=== PATIENT | male | born 1965 | race Caucasian/White ===

== ENCOUNTER 2020-08-25 04:06 | Emergency (ER) | payer OTHER ==
[~2020-08-25] VITALS: Ht 177.8 cm; Wt 109.0 kg
--- NOTE | 2020-08-25 04:25 | PHYS DOC ---
Past History Past Medical History: Angina, CAD, CVA, High Cholesterol, Heart Disease, TIA (LINDY FRANCO MD) Past Surgical History: Angioplasty (LINDY FRANCO MD) General Adult EDM: Chief Complaint: CHEST PAIN HPI: HPI: ".. I ve been having chest pain off and on..or discomfort.. I had two heart attacks last year.. one during the stress test.. and one the next morning.. I ended up with two stents.. and Stroke.. that was in and in [facility].. " " I don't want to be admitted if at all possible.. " It just that this pain woke up up at 0300 am.. and did not go away with 5 nitros..." Patient is a 54 year old male patient from [facility] who presents with periodic chest discomfort. Patient states discomfort tonight has been constant tonight and did not seem to relieve with 3 nitros. Patient states he did take 4 aspirin. Patient has had 2 previous MIs and placement of stents. Did have of CVA in Jun. . Patient has been seen with provider in outpatient clinic here at [facility]. Some recent changes in meds. Patient does not smoke. No recent travel. No specific ill contacts. (LINDY FRANCO MD) Review of Systems: Review of Systems: Constitutional: Denies fever or chills Eyes: Denies change in visual acuity HENT: Denies nasal congestion or sore throat Respiratory: Denies cough or shortness of breath Cardiovascular: Complains of chest pain GI: Denies abdominal pain, nausea, vomiting, bloody stools or diarrhea : Denies dysuria Musculoskeletal: Denies back pain or joint pain Integument: Denies rash Neurologic: Denies headache, focal weakness or sensory changes Endocrine: Denies polyuria or polydipsia Lymphatic: Denies swollen glands Psychiatric: Denies depression or anxiety (LINDY FRANCO MD) Family History: Family History: Father had quadruple bypass age 50, mother had cancer Sister has no health problems (LINDY FRANCO MD) Current Medications: Current Meds: See nursing for home meds (LINDY FRANCO MD) Allergies: Allergies: Allergic to sulfa (LINDY FRANCO MD) Physical Exam: PE: Constitutional: Moderate acute distress, non-toxic appearance. [] HENT: Normocephalic, atraumatic, bilateral external ears normal, oropharynx moist, no oral exudates, nose normal. [] Eyes: PERRLA, EOMI, conjunctiva normal, no discharge. [] Neck: Normal range of motion, no tenderness, supple, no stridor. [] Cardiovascular: Bradycardia heart rate regular rhythm, no murmur [] PMI slightly to the left Lungs & Thorax: Bilateral breath sounds clear to auscultation [] Abdomen: Bowel sounds normal, soft, no tenderness, no masses, no pulsatile masses. Obese Skin: Warm, dry, no erythema, no rash. [] Back: No tenderness, no CVA tenderness. [] Extremities: No tenderness, no cyanosis, no clubbing, ROM intact, trace ankle edema. No cording noted Neurologic: Alert and oriented X 3, normal motor function, normal sensory function, no focal deficits noted. [] Psychologic: Affect anxious, judgement normal, mood normal. [] (LINDY FRANCO MD) Current Patient Data: Labs: Laboratory Tests Test 08/25/20 04:17 08/25/20 07:40 White Blood Count 7.4 x10^3/uL Red Blood Count 4.77 x10^6/uL Hemoglobin 14.4 g/dL Hematocrit 43.7 % Mean Corpuscular Volume 92 fL Mean Corpuscular Hemoglobin 30 pg Mean Corpuscular Hemoglobin Concent 33 g/dL Red Cell Distribution Width 13.5 % Platelet Count 206 x10^3/uL Neutrophils (%) (Auto) 48 % Lymphocytes (%) (Auto) 39 % Monocytes (%) (Auto) 11 % Eosinophils (%) (Auto) 2 % Basophils (%) (Auto) 1 % Neutrophils # (Auto) 3.5 x10^3uL Lymphocytes # (Auto) 2.9 x10^3/uL Monocytes # (Auto) 0.8 x10^3/uL Eosinophils # (Auto) 0.2 x10^3/uL Basophils # (Auto) 0.1 x10^3/uL Prothrombin Time 9.6 SEC Prothromb Time International Ratio 0.9 Activated Partial Thromboplast Time 24 SEC D-Dimer (Elza) 0.32 mg/L Sodium Level 139 mmol/L Potassium Level 4.0 mmol/L Chloride Level 104 mmol/L Carbon Dioxide Level 28 mmol/L Anion Gap 7 Blood Urea Nitrogen 23 mg/dL Creatinine 1.1 mg/dL Estimated GFR (Cockcroft-Gault) 69.5 Glucose Level 104 mg/dL Calcium Level 9.0 mg/dL Magnesium Level 2.0 mg/dL Total Bilirubin 0.4 mg/dL Direct Bilirubin 0.2 mg/dL Aspartate Amino Transf (AST/SGOT) 23 U/L Alanine Aminotransferase (ALT/SGPT) 45 U/L Alkaline Phosphatase 161 U/L Creatine Kinase 75 U/L Troponin I Quantitative < 0.017 ng/mL < 0.017 ng/mL GG-Yev-M-Type Natriuretic Peptide 76 pg/mL Total Protein 6.6 g/dL Albumin 3.9 g/dL Lipase 148 U/L Current Medications Medications (Trade) Dose Ordered Sig/Jenniffer Route PRN Reason Start Time Stop Time Status Last Admin Dose Admin Lactated Ringer's 1,000 ml @ 100 mls/hr Q10H IV 08/25/20 04:30 08/25/20 14:29 08/25/20 04:30 Nitroglycerin (Nitro-Bid Oint) 1 inch 1X ONCE TP 08/25/20 05:30 08/25/20 05:31 DC Enoxaparin Sodium (Lovenox 100mg Syringe) 100 mg 1X ONCE SQ 08/25/20 05:30 08/25/20 05:31 DC 08/25/20 07:00 (CHEIKH TOBIAS DO) EKG: EKG: My interpretation EKG shows a sinus bradycardia 56 bpm. P wave is difficult to identify .[] (LINDY FRANCO MD) Radiology/Procedures: Radiology/Procedures: [][place] [address] IMAGING REPORT Signed PATIENT: LUIS CARLOS ADKINS ACCOUNT: [id number] : 1965 LOCATION: ER AGE: 54 SEX: M EXAM STATUS: PRE ER ORD. PHYSICIAN: LINDY FRANCO MD REASON: Pain- c/p PROCEDURE: PORTABLE CHEST 1V INDICATION: Reason: Pain- c/p / Spl. Instructions: / History: COMPARISON: None. FINDINGS: Single view of chest obtained. Hypertrophic changes at the acromioclavicular joints. Cardiac silhouette is unremarkable. Linear opacity left lung base IMPRESSION: * Linear opacity at the left lung base which could be secondary to atelectasis Electronically signed by: Alan Connell MD (08/25/2020 4:52 AM) DESKTOP- [id number] DICTATED AND SIGNED BY: ALAN CONNELL MD DATE: 08/25/20 045 CC: LINDY FRANCO MD ~MTH0 0 (LINDY FRANCO MD) Heart Score: HEART Score for Chest Pain: HEART Score for Chest Pain Response (Comments) Value History Moderately Suspicious 1 ECG Nonspecific Repolarizatio 1 Age >45 - < 65 1 Risk Factors 1 or 2 Risk Factors 1 Troponin < Normal Limit 0 Total 4 Risk Factors: Risk Factors: DM, Current or recent (<one month) smoker, HTN, HLP, family history of CAD, obesity. Risk Scores: Score 0 - 3: 2.5% MACE over next 6 weeks - Discharge Home Score 4 - 6: 20.3% MACE over next 6 weeks - Admit for Clinical Observation Score 7 - 10: 72.7% MACE over next 6 weeks - Early Invasive Strategies (LINDY FRANCO MD) HEART Score for Chest Pain: HEART Score for Chest Pain Response (Comments) Value History Slighlty/Non-Suspicious 0 ECG Nonspecific Repolarizatio 1 Age >45 - < 65 1 Risk Factors >3 Risk Factors or Hx CAD 2 Troponin < Normal Limit 0 Total 4 Course & Med Decision Making: Course & Med Decision Making Pertinent Labs and Imaging studies reviewed. (See chart for details) Patient endorsed to Dr. Tobias at shift change . He will make disposition. Impression: 1, Chest Pain 2. Hx. CAD- Hx two SC and Two Stents 3. Hx.Elevated Cholesterol 4. Hx. CVA in [] (LINDY FRANCO MD) Course & Med Decision Making I have received signout on the patient's emergency department care from Dr. Herndon. We discussed the history, physical exam findings, completed and pending laboratory results and imaging studies. We have also discussed the current treatment plan and expected clinical course. Please refer to further update notes for additional information regarding the patient's final diagnosis and disposition. In brief patient is a 54-year-old male who presented with a chief complaint of chest pain that is not relieved with home nitroglycerin. He does have a history of coronary artery disease. He has stated multiple times that he does not want to be admitted. Basic labs were obtained and were grossly unremarkable. EKG without acute ischemic changes. D-dimer negative. Given the patient is low risk Wells criteria CT PE study to be deferred. Patient had 2 - troponins. On repeat assessment he remains chest pain-free. His story is not consistent with typical cardiac related angina. I did discuss results of labs and imaging in great detail. Patient is still requesting discharge home. I explained that we cannot fully exclude underlying coronary artery disease or cardiac etiology with laboratory Naus is only. He does express understanding. Utilizing shared decision making patient will be discharged home with close outpatient follow-up. (CHEIKH TOBIAS DO) Dragon Disclaimer: Dragon Disclaimer: This electronic medical record was generated, in whole or in part, using a voice recognition dictation system. (LINDY FRANCO MD) Departure Departure: Impression: Primary Impression: Chest pain of uncertain etiology Disposition: 01 DC HOME SELF CARE/HOMELESS Condition: STABLE Referrals: IZA CALLOWAY MD Patient Instructions: Chest Pain (Nonspecific) Additional Instructions: Please follow-up with your primary care physician in the next 2 to 3 days. LINDY FRANCO MD Aug 25, 2020 04:25 CHEIKH TOBIAS DO Aug 25, 2020 08:31
[2020-08-25] MEDS ORDERED: IV RINGERS SOLUTION,LACTATED 1,000 ML IV SCH (04:30)
[2020-08-25 04:55] LABS: BASO # 0.1 x10^3/uL (0.0-0.2); BASO % 1 % (0-3); EOS # 0.2 x10^3/uL (0.0-0.7); EOS % 2 % (0-3); HEMATOCRIT 43.7 % (39.0-53.0); HEMOGLOBIN 14.4 g/dL (13.0-17.5); LYMPH # 2.9 x10^3/uL (1.0-4.8); LYMPH % 39 % (24-48); MEAN CORPUSCULAR HEMOGLOBIN 30 pg (25-35); MEAN CORPUSCULAR HGB CONC 33 g/dL (31-37); MEAN CORPUSCULAR VOLUME 92 fL (79-100); MONO # 0.8 x10^3/uL (0.0-1.1); MONO % 11 % (0-9); NEUT # 3.5 x10^3uL (1.8-7.7); NEUT % 48 % (31-73); PLATELET COUNT 206 x10^3/uL (140-400); RED BLOOD COUNT 4.77 x10^6/uL (4.30-5.70); RED CELL DISTRIBUTION WIDTH 13.5 % (11.5-14.5); WHITE BLOOD COUNT 7.4 x10^3/uL (4.0-11.0)
--- NOTE | 2020-08-25 04:55 | RAD ---
INDICATION: Reason: Pain- c/p / Spl. Instructions: / History: COMPARISON: None. FINDINGS: Single view of chest obtained. Hypertrophic changes at the acromioclavicular joints. Cardiac silhouette is unremarkable. Linear opacity left lung base IMPRESSION: * Linear opacity at the left lung base which could be secondary to atelectasis Electronically signed by: Hieu Purvis MD (08/25/2020 4:52 AM) DESKTOP-[id number]
[2020-08-25 05:02] LABS: CREATININE 1.1 mg/dL (0.7-1.3); GFR 69.5
[2020-08-25 05:12] LABS: ALBUMIN 3.9 g/dL (3.4-5.0); DIRECT BILIRUBIN 0.2 mg/dL (0.0-0.2); TOTAL BILIRUBIN 0.4 mg/dL (0.2-1.0); TOTAL PROTEIN 6.6 g/dL (6.4-8.2)
[2020-08-25] MEDS ORDERED: NITROGLYCERIN OINT 1 GM PACKET. TP ONE (05:30)
[2020-08-25] MEDS ORDERED: ENOXAPARIN ** NOTE DOSE ** SYRINGE SQ ONE (05:30)
--- NOTE | 2020-08-25 06:18 | EKG ---
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
[2020-08-25 08:42] VITALS: BP 125/64
== END 2020-08-25 08:43 | disposition home or self-care (01) ==
LOC: ER 04:06
DX: R07.89 Other chest pain (principal); I11.9 Hypertensive heart disease without heart failure; E78.00 Pure hypercholesterolemia, unspecified; Z86.73 Personal history of transient ischemic attack (TIA), and cerebral infarction without residual deficits; Z90.89 Acquired absence of other organs; Z88.2 Allergy status to sulfonamides
CPT/HCPCS: 36415; 71045; 80048; 80076; 82550; 83690; 83735; 83880; 84484; 85025; 85379; 85610; 85730; 93005; 96360; 96361; 96372; 99285; J1650; J7120

== ENCOUNTER 2020-09-12 11:57 | Observation (INO) | payer OTHER ==
[~2020-09-12] VITALS: Ht 175.3 cm; Wt 115.4 kg
[2020-09-12] MEDS ORDERED: IV NORMAL SALINE 1,000ML 1,000 ML IV SCH (12:15)
[2020-09-12] MEDS ORDERED: ASPIRIN 325 MG TABLET PO ONE (12:15)
--- NOTE | 2020-09-12 12:31 | EKG ---
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
[2020-09-12 12:36] LABS: BASO # 0.1 x10^3/uL (0.0-0.2); BASO % 1 % (0-3); EOS # 0.2 x10^3/uL (0.0-0.7); EOS % 3 % (0-3); HEMOGLOBIN 14.7 g/dL (13.0-17.5); LYMPH # 2.2 x10^3/uL (1.0-4.8); LYMPH % 31 % (24-48); MEAN CORPUSCULAR HEMOGLOBIN 31 pg (25-35); MEAN CORPUSCULAR HGB CONC 34 g/dL (31-37); MEAN CORPUSCULAR VOLUME 90 fL (79-100); MONO # 0.8 x10^3/uL (0.0-1.1); MONO % 11 % (0-9); NEUT # 3.9 x10^3uL (1.8-7.7); NEUT % 54 % (31-73); PLATELET COUNT 192 x10^3/uL (140-400); RED BLOOD COUNT 4.78 x10^6/uL (4.30-5.70); RED CELL DISTRIBUTION WIDTH 13.8 % (11.5-14.5); WHITE BLOOD COUNT 7.2 x10^3/uL (4.0-11.0)
--- NOTE | 2020-09-12 12:42 | RAD ---
EXAM: Chest, single view. HISTORY: Chest pain. COMPARISON: 08/25/2020 FINDINGS: A frontal view of the chest obtained. There is no infiltrate, pleural effusion or pneumotho rax. There is bilateral infrahilar linear atelectasis. The heart is normal in size. IMPRESSION: Bilateral infrahilar linear atelectasis. Electronically signed by: Liliana Arvizu MD (09/12/2020 12:39 PM) [id number]
--- NOTE | 2020-09-12 12:44 | PHYS DOC ---
Past History Past Medical History: Angina, CAD, CVA, High Cholesterol, Heart Disease, TIA Additional Past Medical Histor: right side weakness, polyps Past Surgical History: Angioplasty Additional Past Surgical Histo: 2 stents, LAMINECTOMY Alcohol Use: None General Adult EDM: Chief Complaint: CHEST PAIN HPI: HPI: Patient is a 54-year-old male who presents with chest pain that started at 430 AM. Patient states that the pain woke him up out of his sleep. Patient reports taking 3 nitros and the pain was resolved. Patient states he went back to sleep and woke back up out of sleep again with chest pain at 9 AM. Pain described as a sharp left-sided chest pain. Patient is rating pain a 4 out of 10. Patient does have a history of a CVA in 2019, stents placed in 2019. Patient is currently taking Plavix.Patient denies nausea, vomiting, shortness of breath or dizziness. Pain does not radiate. Patient reports positive Covid test on July 08 Review of Systems: Review of Systems: Constitutional: Denies fever or chills Eyes: Denies change in visual acuity HENT: Denies nasal congestion or sore throat Respiratory: Denies cough or shortness of breath Cardiovascular: Reports left-sided chest pain, denies edema GI: Denies abdominal pain, nausea, vomiting, bloody stools or diarrhea : Denies dysuria Musculoskeletal: Denies back pain or joint pain Integument: Denies rash Neurologic: Denies headache, focal weakness or sensory changes Endocrine: Denies polyuria or polydipsia Lymphatic: Denies swollen glands Psychiatric: Denies depression or anxiety Current Medications: Current Meds: Current Medications Medications (Trade) Dose Ordered Sig/[facility] Start Time Stop Time Status Last Admin Dose Admin Aspirin (David Aspirin) 325 mg 1X ONCE 09/12/20 12:15 09/12/20 12:16 DC Sodium Chloride 1,000 ml @ 1,000 mls/hr Q1H 09/12/20 12:15 09/12/20 13:14 Allergies: Allergies: Allergies Coded Allergies Type Severity Reaction Last Updated Verified Sulfa (Sulfonamide Antibiotics) Allergy Intermediate 08/25/20 Yes Physical Exam: PE: Constitutional: Well developed, well nourished, no acute distress, non-toxic appearance. [] HENT: Normocephalic, atraumatic, bilateral external ears normal, oropharynx m oist, no oral exudates, nose normal. [] Eyes: PERRLA, EOMI, conjunctiva normal, no discharge. [] Neck: Normal range of motion, no tenderness, supple, no stridor. [] Cardiovascular:Heart rate regular rhythm, no murmur [] Lungs & Thorax: Bilateral breath sounds clear to auscultation [] Abdomen: Bowel sounds normal, soft, no tenderness, no masses, no pulsatile masses. [] Skin: Warm, dry, no erythema, no rash. [] Back: No tenderness, no CVA tenderness. [] Extremities: No tenderness, no cyanosis, no clubbing, ROM intact, no edema. [] Neurologic: Alert and oriented X 3, normal motor function, normal sensory function, no focal deficits noted. [] Psychologic: Affect normal, judgement normal, mood normal. [] Current Patient Data: Vital Signs: Vital Signs Date Time Temp Pulse Resp B/P (MAP) Pulse Ox O2 Delivery O2 Flow Rate FiO2 09/12/20 12:10 97.8 65 20 155/73 (100) 96 Room Air EKG: EKG: [] Radiology/Procedures: Radiology/Procedures: []EXAM: Chest, single view. HISTORY: Chest pain. COMPARISON: 08/25/2020 FINDINGS: A frontal view of the chest obtained. There is no infiltrate, pleural effusion or pneumothorax. There is bilateral infrahilar linear atelectasis. The heart is normal in size. IMPRESSION: Bilateral infrahilar linear atelectasis. Electronically signed by: Liliana Arvizu MD (09/12/2020 12:39 PM) [id number] Heart Score: HEART Score for Chest Pain: HEART Score for Chest Pain Response (Comments) Value History Highly Suspicious 2 ECG Normal 0 Age >45 - < 65 1 Risk Factors >3 Risk Factors or Hx CAD 2 Troponin < Normal Limit 0 Total 5 Risk Factors: Risk Factors: DM, Current or recent (<one month) smoker, HTN, HLP, family history of CAD, obesity. Risk Scores: Score 0 - 3: 2.5% MACE over next 6 weeks - Discharge Home Score 4 - 6: 20.3% MACE over next 6 weeks - Admit for Clinical Observation Score 7 - 10: 72.7% MACE over next 6 weeks - Early Invasive Strategies Course & Med Decision Making: Course & Med Decision Making Pertinent Labs and Imaging studies reviewed. (See chart for details) []Patient is a 54-year-old male who presents with chest pain that started at 430 AM. Patient states that the pain woke him up out of his sleep. Patient reports taking 3 nitros and the pain was resolved. Patient states he went back to sleep and woke back up out of sleep again with chest pain at 9 AM. Pain described as a sharp left-sided chest pain. Patient is rating pain a 4 out of 10. Patient does have a history of a CVA in 2019, stents placed in 2018. Patient is currently taking Plavix.Patient denies nausea, vomiting, shortness of breath or dizziness. Pain does not radiate. Patient reports positive Covid test on July 08 Will order chest x-ray, EKG, labs and troponin. EKG normal sinus rhythm.HR [address] elevation or Depression noted. Chest Xray shows no infiltrates, pleural effusion or pneumothorax. There is bilateral infrahilar linear atelectasis. The heart is normal in size. Trop and DDimer negative. Heart Score [address] Rodriguez, who accepted patient for observation. Will consult cardiology. Patient agrees with this plan. Dragon Disclaimer: Dragon Disclaimer: This electronic medical record was generated, in whole or in part, using a voice recognition dictation system. Departure Departure: Impression: Primary Impression: Chest pain Disposition: ADMITTED INPT THIS HOSP Admitting Physician: Ivet Rodriguez Condition: STABLE Referrals: TONI HANEY (PCP) PETTY WHEELER APRN Sep 12, 2020 12:44
[2020-09-12 12:46] LABS: CALCIUM 8.7 mg/dL (8.5-10.1); CREATININE 0.8 mg/dL (0.7-1.3); GFR 100.4; POTASSIUM 4.5 mmol/L (3.5-5.1)
[2020-09-12 13:03] LABS: ALBUMIN 3.8 g/dL (3.4-5.0); ALBUMIN/GLOBULIN RATIO 1.3 (1.0-1.7); TOTAL BILIRUBIN 0.4 mg/dL (0.2-1.0); TOTAL PROTEIN 6.7 g/dL (6.4-8.2)
[2020-09-12 13:15] LABS: BACTERIA,URINE 0 /HPF (0-FEW); BILIRUBIN,URINE NEG (NEG); CLARITY,URINE CLEAR; COLOR,URINE YELLOW; GLUCOSE,URINE NEG (NEG); NITRITE,URINE NEG (NEG); SQUAMOUS EPITHELIAL CELL,UR FEW /LPF; WBC,URINE OCC /HPF (0-4)
[2020-09-12 13:54] LABS: BARBITURATES NEG (NEG); BENZODIAZEPINES NEG (NEG); CANNABINOIDS NEG (NEG); COCAINE NEG (NEG); METHADONE NEG (NEG); OPIATES NEG (NEG); PHENCYCLIDINE NEG (NEG)
[2020-09-12 13:58] LABS: AMPHETAMINE/METHAMPHETAMINE NEG (NEG)
[2020-09-12 14:57] VITALS: BP 133/80
--- NOTE | 2020-09-12 15:48 | NUR ---
ADMISSION NOTE-PT ARRIVES VIA EMS. HE SCOOTS UNDER HIS WON POWER FROM COT TO BED. VS ASSESSED, ET TELEMETRY INITIATED. PT IS RECENTLY RELEASED FROM [facility] TO THE [facility]. CONTACT MADE WITH [facility] FOR APPROPRIATE [place] PAPERWORK, PHARMACY PREFERENCE, ET MEDICATION LIST.
[2020-09-12] MEDS ORDERED: METOPROLOL (17:07)
[2020-09-12] MEDS ORDERED: ATORVASTATIN CA80 MG PO (17:07)
[2020-09-12] MEDS ORDERED: OXYCARBAZEPINE (17:07)
[2020-09-12] MEDS ORDERED: ASPI-630 PO (17:07)
[2020-09-12] MEDS ORDERED: NITR0.4T22 SL (17:07)
[2020-09-12] MEDS ORDERED: CARV12.547 PO (17:07)
[2020-09-12] MEDS ORDERED: CLOP75TA PO (17:07)
[2020-09-12] MEDS ORDERED: IBUP400T18 PO (17:07)
[2020-09-12] MEDS ORDERED: ISOS120T4 PO (17:07)
[2020-09-12] MEDS ORDERED: LOSA1TAB19 PO (17:07)
--- NOTE | 2020-09-12 19:12 | RAD ---
Exam: US DPLX VENOUS EXTREMITY LOWER RT Indication: Reason: right LE is more swollen than his LLE / Spl. Instructions: / History: Technique: Color-flow and pulsed wave duplex ultrasound with compression of venous structures of th e right lower extremity. Comparison: None Available. Findings: Duplex ultrasound with compression of the deep venous structures of the right lower extremi ty from the common femoral vein through the popliteal vein is negative for DVT. The posterior tibial and peroneal veins are segmentally visualized and patent where seen. Normal venous waveforms and augm entation are noted throughout. Impression: No evidence for DVT in the right lower extremity. Electronically signed by: Cruz Tovar MD (09/12/2020 7:10 PM) GUANACO
--- NOTE | 2020-09-12 19:15 | HP ---
ADMIT DATE: 09/12/2020 HISTORY OF PRESENT ILLNESS: The patient is a 54-year-old male patient, currently at [facility], which is a senior care house, who came to the Emergency Room complaining of chest pain that awakened him from sleep at around 4:30 a.m. He stated he took 3 nitros and the pain has resolved. He denied any nausea or vomiting. He did complain of diaphoresis. He went back to sleep and when he woke up again around 9:00, he had another episode of chest pain. Again, the pain has awakened him up. The pain is described as sharp, left sided, rated the pain as 4/10. He has a history of CVA in 2019 and stent placement in his heart in 2018. He is on Plavix. The pain is mostly left-sided, does not radiate. The patient reported that he tested positive for COVID in 07/08/2020. He was extensively investigated in the Emergency Room, has had an EKG, which showed that he is in normal sinus rhythm according to the ER physician. He has had a chest x-ray, which showed bilateral infrahilar linear atelectasis. His lab work showed that his hemoglobin, hematocrit, white cell count and platelets are normal. His chemistry is unremarkable. His first set of cardiac enzymes showed troponin to be less than 0.017. His D-dimer was 0.21. PT, INR and aPTT are all normal. Urinalysis was unremarkable and toxic screen was negative. The patient was admitted with chest pain that seems to be a decubitus angina as it awakened him from sleep twice and he also complained of some exertional chest pain, although he is mostly wheelchair bound. PAST MEDICAL HISTORY: Significant for hypertension, hyperlipidemia, cerebrovascular accident with right-sided hemiparesis. He said that he gained strength in his right upper extremity to much good extent than his right lower extremity. His symptoms are suggestive of benign prostatic hypertrophy. He is mostly wheelchair bound as apparently he has had laminectomy at L5-S1 and was supposed to have more surgery. PAST SURGICAL HISTORY: Significant for tonsillectomy and PCI with stent deployment x 2. He has also L5-S1 laminectomy. MEDICATIONS: He does not know his medication list. FAMILY HISTORY: He has 1 biological sister older and healthy. His father at the age of 86 due to old age. Mother at age of 83 because of lung cancer. SOCIAL HISTORY: He is , has 2 daughters and 1 son. He never smoked, does not drink alcohol or use recreational drugs. 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 REVIEW OF SYSTEMS: As per history of present illness. PHYSICAL EXAMINATION: GENERAL: On arrival to the Emergency Room, he looked well and was clearly in no apparent respiratory distress. No pallor, jaundice, cyanosis or thyromegaly. No jugular venous distention. No lower limb edema. VITAL SIGNS: His heart rate was 65, blood pressure 155/73, temperature was 97.8, respiratory rate was 20, and oxygen saturation was 96%. HEAD, EYES, EARS, NOSE AND THROAT: Showed normocephalic, atraumatic. NECK: Supple. HEART: Showed normal first and second heart sounds. No gallop, rub or murmur. CHEST: Clear to auscultation. No crepitation or rhonchi. ABDOMEN: Distended, soft, nontender. NEUROLOGIC: He is awake, alert, responding appropriately. All cranial nerves are intact. EXTREMITIES: He moves extremities without difficulty. He actually has weakness more in his right lower extremity than his right upper extremity. He is mostly wheelchair bound. Right lower extremity seems to be a little bit more swollen than his left. LABORATORY DATA: His lab work showed a white cell count 7200, hemoglobin 14.7, hematocrit 43, MCV 90, and platelet count of 192,000 with normal manual differential. His chemistry showed a serum sodium 136, potassium 4.5, chloride 102, bicarbonate 27, anion gap of 7, BUN 21, creatinine 0.8, estimated GFR was 100 mL per minute. His glucose was 96, calcium was 8.7. Total bilirubin, AST, ALT and alkaline phosphatase were normal. His total protein was 6.7, albumin 3.8. His first set of cardiac enzymes showed troponin to be less than 0.017. In summary, this is a 54-year-old male patient with past medical history significant for coronary artery disease, who was brought to the Emergency Room with recurrent episode of chest pain, mostly in the left side that awakened him from sleep twice, rated about 4/10 in severity, associated diaphoresis, but no nausea, vomiting, no radiation. His first set of cardiac enzyme is normal as well as EKG. The patient has a history of myocardial infarction with angioplasty and stent deployment x 2 in 2019. He has also cerebrovascular accident with right-sided hemiparesis affecting his right lower extremity more so than his right upper extremity. He is currently mostly wheelchair bound. Other medical problems include hypertension, hyperlipidemia and questionable benign prostatic hypertrophy. PLAN: Plan is to do 2 more sets of cardiac enzymes, check his fasting lipid profile, consult the Cardiology team and decide the further management accordingly. IZA CALLOWAY MD DR: RACHEL/ratna JOB#: [id number] / [id number]
[2020-09-12 19:53] VITALS: BP 154/96
[2020-09-12] MEDS ORDERED: NITROGLYCERIN SUBLINGUAL 0.4 MG BOTTLE OF 25. SL PRN (21:00)
[2020-09-12] MEDS ORDERED: METOPROLOL TART IMMED RELEASE 25 MG TABLET. PO SCH (21:30)
[2020-09-12 22:52] VITALS: BP 142/76
[2020-09-13 03:06] VITALS: BP 161/87
--- NOTE | 2020-09-13 07:52 | PDOC2 ---
CARDIAC CONSULT DATE OF CONSULT DOS: DATE: 09/13/20 TIME: 07:49 REASON FOR CONSULT Reason for Consult Cheat pain REFERRING PHYSICIAN Referring Physician Dr. Rodriguez SOURCE Source: Chart review, Patient HPI History of Present Illness This is a 54 yo male who presented secondary to chest pain. Patient has a history of CAD s/p PCI/stent placement in August of 2019 in [place]. About 3 months after stent placement, patient began experiencing intermittent chest pain . His interface developer in [place] recommend outpatient stress testing. Unfortunately, prior to ischemic evaluation, patient suffered stroke and then was diagnosed with COVID, which has delayed his ischemic evaluation. Patient was recently discharged from half-way and is now residing at [facility] through December. He will remain in this area for the following 3 years. His primary care has referred him to Dr. Allen for cardiac follow up. Yesterday morning, patient woke up with stabbing pain in his left chest. No associated shortness of breath, diaphoresis, or dizziness. Does report some nausea with one episode of vomiting. Took nitro x3 which resolved pain. Has had no reoccurrence. Has had some nasal congestion recently. Reports pain to be different from what he experienced previously with acute NH. Reports compliance with meds including DAPT with ASA, Plavix. He also reports some pressure in his chest with exertion, which he has been experiencing intermittently since December of last year. PAST MEDICAL HISTORY Cardiovascular: CAD, HTN, hyperipidemia Pulmonary: Other (COVID 06/28) CENTRAL NERVOUS SYSTEM: CVA PAST SURGICAL HISTORY Past Surgical History: Other (PCI/stent ) FAMILY HISTORY Family History: Cancer, Heart Disease, Other (PCI/stent ) SOCIAL HISTORY ALCOHOL: none Drugs: None Lives: with Family CURRENT MEDICATIONS Current Medications Current Medications Aspirin (David Aspirin) 325 mg 1X ONCE PO Last administered on 09/12/20at 12:39; Start 09/12/20 at 12:15; Stop 09/12/20 at 12:16; Status DC Sodium Chloride 1,000 ml @ 1,000 mls/hr Q1H IV Last administered on 09/12/20at 12:41; Start 09/12/20 at 12:15; Stop 09/12/20 at 13:14; Status DC Aspirin (Aspirin Chewable) 81 mg DAILY PO ; Start 09/13/20 at 09:00 Carvedilol (Coreg) 12.5 mg BIDWMEALS PO ; Start 09/13/20 at 08:00 Clopidogrel Bisulfate (Plavix) 75 mg DAILY PO ; Start 09/13/20 at 09:00 Nitroglycerin (Nitrostat) 0.4 mg PRN Q5MIN PRN SL CHEST PAIN; Start 09/12/20 at 21:00 Atorvastatin Calcium (Lipitor) 80 mg DAILY PO ; Start 09/13/20 at 09:00 Isosorbide Mononitrate (Imdur) 240 mg DAILY PO ; Start 09/13/20 at 09:00 Losartan Potassium (Cozaar) 50 mg DAILY PO ; Start 09/13/20 at 09:00 Metoprolol Tartrate (Lopressor) 25 mg BID PO Last administered on 09/12/20at 21:30; Start 09/12/20 at 21:30 Oxcarbazepine (Trileptal) 600 mg BID PO Last administered on 09/12/20at 21:30; Start 09/12/20 at 21:30 Hydrochlorothiazide (Microzide) 12.5 mg DAILY PO ; Start 09/13/20 at 09:00 Active Scripts Active Reported [Metoprolol] 25 25 Mg BID NITROGLYCERIN SubLingual (Nitroglycerin) 0.4 Mg Tab.subl 0.4 Mg SL PRN Q5MIN PRN Aspirin 81 Mg Tab.chew 81 Mg PO DAILY Losartan-Hctz 50-12.5 Mg Tab (Losartan/Hydrochlorothiazide) 1 Each Tablet 1 Tab PO DAILY Isosorbide Mononitrate Er (Isosorbide Mononitrate) 120 Mg Tab.er.24h 240 Mg PO DAILY Atorvastatin Calcium 80 Mg Tablet 1 Tab PO DAILY Clopidogrel (Clopidogrel Bisulfate) 75 Mg Tablet 1 Tab PO DAILY Carvedilol (Carvedilol) 12.5 Mg Tablet 12.5 Mg PO BIDWMEALS [Oxycarbazepine] 600 Mg BID ALLERGIES Allergies: Coded Allergies: Sulfa (Sulfonamide Antibiotics) (Verified Allergy, Intermediate, 08/25/20) ROS Review of Systems 14 point ROS conducted with pertinent positives noted above in HPI PHYSICAL EXAM General: Alert, Oriented X3, Cooperative, No acute distress HEENT: Atraumatic, Mucous membr. moist/pink Lungs: Clear to auscultation Heart: Regular rate Abdomen: Soft, No tenderness Extremities: No edema, Normal pulses Skin: No rashes, No breakdown Neuro: Normal speech, Sensation intact Psych/Mental Status: Mental status NL, Mood NL MUSCULOSKELETAL: Osteoarthritic changes both hands VITALS Vital Signs Vital Signs Date Time Temp Pulse Resp B/P (MAP) Pulse Ox O2 Delivery O2 Flow Rate FiO2 09/13/20 03:06 97.6 63 161/87 (111) 96 Room Air 09/12/20 22:52 20 LABS LABS Laboratory Tests Test 09/12/20 12:18 09/12/20 12:40 09/12/20 18:15 09/12/20 21:48 White Blood Count 7.2 x10^3/uL (4.0-11.0) Red Blood Count 4.78 x10^6/uL (4.30-5.70) Hemoglobin 14.7 g/dL (13.0-17.5) Hematocrit 43.0 % (39.0-53.0) Mean Corpuscular Volume 90 fL (79-100) Mean Corpuscular Hemoglobin 31 pg (25-35) Mean Corpuscular Hemoglobin Concent 34 g/dL (31-37) Red Cell Distribution Width 13.8 % (11.5-14.5) Platelet Count 192 x10^3/uL (140-400) Neutrophils (%) (Auto) 54 % (31-73) Lymphocytes (%) (Auto) 31 % (24-48) Monocytes (%) (Auto) 11 % (0-9) Eosinophils (%) (Auto) 3 % (0-3) Basophils (%) (Auto) 1 % (0-3) Neutrophils # (Auto) 3.9 x10^3uL (1.8-7.7) Lymphocytes # (Auto) 2.2 x10^3/uL (1.0-4.8) Monocytes # (Auto) 0.8 x10^3/uL (0.0-1.1) Eosinophils # (Auto) 0.2 x10^3/uL (0.0-0.7) Basophils # (Auto) 0.1 x10^3/uL (0.0-0.2) Prothrombin Time 10.0 SEC (9.4-11.4) Prothromb Time International Ratio 1.0 (0.9-1.1) Activated Partial Thromboplast Time 24 SEC (23-33) D-Dimer (Elza) 0.21 mg/L (0.00-0.50) Sodium Level 136 mmol/L (136-145) Potassium Level 4.5 mmol/L (3.5-5.1) Chloride Level 102 mmol/L (98-107) Carbon Dioxide Level 27 mmol/L (21-32) Anion Gap 7 (6-14) Blood Urea Nitrogen 21 mg/dL (8-26) Creatinine 0.8 mg/dL (0.7-1.3) Estimated GFR (Cockcroft-Gault) 100.4 BUN/Creatinine Ratio 26 (6-20) Glucose Level 96 mg/dL (70-99) Calcium Level 8.7 mg/dL (8.5-10.1) Total Bilirubin 0.4 mg/dL (0.2-1.0) Aspartate Amino Transf (AST/SGOT) 21 U/L (15-37) Alanine Aminotransferase (ALT/SGPT) 48 U/L (16-63) Alkaline Phosphatase 146 U/L (46-116) Creatine Kinase 117 U/L (39-308) Creatine Kinase MB (Mass) 1.0 ng/mL (0.0-3.6) Creatine Kinase MB Relative Index 0.9 % (0-4) Troponin I Quantitative < 0.017 ng/mL (0-0.055) < 0.017 ng/mL (0-0.055) < 0.017 ng/mL (0-0.055) QZ-Qgb-T-Type Natriuretic Peptide 76 pg/mL (0-124) Total Protein 6.7 g/dL (6.4-8.2) Albumin 3.8 g/dL (3.4-5.0) Albumin/Globulin Ratio 1.3 (1.0-1.7) Urine Collection Type Unknown Urine Color Yellow Urine Clarity Clear Urine pH 6.5 Urine Specific [place] 1.020 Urine Protein Neg (NEG-TRACE) Urine Glucose (UA) Neg mg/dL (NEG) Urine Ketones (Stick) Neg mg/dL (NEG) Urine Blood Trace (NEG) Urine Nitrite Neg (NEG) Urine Bilirubin Neg (NEG) Urine Urobilinogen Dipstick 2.0 mg/dL (0.2 mg/dL) Urine Leukocyte Esterase Neg (NEG) Urine RBC 1-2 /HPF (0-2) Urine WBC Occ /HPF (0-4) Urine Squamous Epithelial Cells Few /LPF Urine Bacteria 0 /HPF (0-FEW) Urine Opiates Screen Neg (NEG) Urine Methadone Screen Neg (NEG) Urine Barbiturates Neg (NEG) Urine Phencyclidine Screen Neg (NEG) Urine Amphetamine/Methamphetamine Neg (NEG) Urine Benzodiazepines Screen Neg (NEG) Urine Cocaine Screen Neg (NEG) Urine Cannabinoids Screen Neg (NEG) Urine Ethyl Alcohol Neg (NEG) ASSESSMENT/PLAN Assessment/Plan 1. Chest pain, mixed features; AMI ruled out. EKG without acute changes 2. CAD s/p PCI/stents 08/27 in [place] 3. Hypertension; mildly elevated 4. Hyperlipidemia; statin 6. CVA with right sided weakness 7. Nausea Recommendations Resume secondary prevention measures including ASA/Plavix, Coreg, statin, and Imdur Discontinue metoprolol as patient is on Coreg Echo to assess LV systolic function Plan for outpatient ischemic evaluation with stress test as arranged Patient has follow up scheduled with Dr. Allen 09/26/19 If echo WNL, may discharge from a CV standpoint. STEFANIE STOLL APRN Sep 13, 2020 07:52
[2020-09-13] MEDS ORDERED: CARVEDILOL 12.5 MG TABLET PO SCH (08:00)
[2020-09-13] MEDS ORDERED: ISOSORBIDE MONONITRATE ER 30 MG TAB.ER.24H PO SCH (09:00)
[2020-09-13] MEDS ORDERED: ONDANSETRON PF 4 MG/2 ML VIAL. IVP ONE (09:00)
[2020-09-13] MEDS: hydroCHLOROthiazide 12.5 MG CAPSULE PO SCH (09:52)
[2020-09-13] MEDS: CLOPIDOGREL BISULFATE 75 MG TABLET PO SCH (09:52)
[2020-09-13] MEDS: ASPIRIN CHEWABLE 81 MG TABLET. PO SCH (09:52)
[2020-09-13] MEDS: LOSARTAN 50 MG TABLET. PO SCH (09:53)
[2020-09-13] MEDS: ATORVASTATIN CALCIUM 20 MG TABLET PO SCH (09:54)
[2020-09-13 10:32] VITALS: BP 169/83
--- NOTE | 2020-09-13 10:56 | NUR ---
MEDICATION NOTE-CALLED DR HANEY'S OFFICE FOR CLARIFICATION ON DOSE OF ISOSORBIDE MN. DOSE IS 30MG ER TABLET DAILY. ALSO, PT TAKES VALSARTAN/HCTZ 320/25MG DAILY AT HOME WELL. IT IS NON-FORMULARY HERE.
[2020-09-13] MEDS ORDERED: ISOS30TA4 PO (10:59)
[2020-09-13] MEDS: ISOSORBIDE MONONITRATE ER 30 MG TAB.ER.24H PO SCH (11:13)
--- NOTE | 2020-09-13 14:00 | EKG ---
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
[2020-09-13 14:41] VITALS: BP 151/70
[2020-09-13] MEDS: CARVEDILOL 12.5 MG TABLET PO SCH (17:00)
--- NOTE | 2020-09-13 17:10 | CARD ---
MR#: [id number] Date of Study: 09/13/2020 Ordering Physician: STEFANIE STOLL, Referring Physician: STEFANIE STOLL, Tech: Daiana Castaneda APPROVED REPORT EXAM: Two-dimensional and M-mode echocardiogram with Doppler and color Doppler. Other Information Quality : AverageHR: 60bpm INDICATION Chest Pain RISK FACTORS Hypertension Hyperlipidemia 2D DIMENSIONS RVDd3.9 (2.9-3.5cm)Left Atrium(2D)4.0 (1.6-4.0cm) IVSd1.1 (0.7-1.1cm)Aortic Root(2D)3.1 (2.0-3.7cm) LVDd5.4 (3.9-5.9cm)LVOT Diameter2.1 (1.8-2.4cm) PWd1.2 (0.7-1.1cm)LVDs2.5 (2.5-4.0cm) FS (%) 54.0 %SV117.3 ml Aortic Valve AoV Peak Paulie.175.7cm/sAoV VTI35.9cm AO Peak GR.12.3mmHgLVOT Peak Paulie.169.1cm/s LVOT VTI 31.63cmAO Mean GR.6mmHg GENO (VMAX)3.76sm0HBP (VTI)3.03cm2 Mitral Valve MV E Fkihxmuh445.3cm/sMV DECEL TFRF332rb MV A Zbqcnmlc92.9cm/sE/A Ratio1.3 Pulmonary Valve PV Peak Jctmqbyf193.9cm/sPV Peak Grad.5mmHg Tricuspid Valve TR P. Eexazgel434cv/sRAP UQDAKEBE8hhJl TR Peak Gr.64bgOjAUJA49hnCz Pulmonary Vein S1 Beygkwqc57.9cm/sD2 Neugzthc89.5cm/s LEFT VENTRICLE The left ventricle is normal size. There is mild concentric left ventricular hypertrophy. The left ve ntricular systolic function is normal and the ejection fraction is within normal range. The Ejection Fraction is 55-60%. There is normal LV segmental wall motion. Transmitral Doppler flow pattern is Gra de II-pseudonormal filling dynamics. RIGHT VENTRICLE The right ventricle is mildly dilated. There is normal right ventricular wall thickness. The right ve ntricular systolic function is normal. ATRIA The left atrium size is normal. The right atrium is borderline dilated. The interatrial septum is int act with no evidence for an atrial septal defect or patent foramen ovale as noted on 2-D or Doppler i maging. AORTIC VALVE The aortic valve is normal in structure and function. Doppler and Color Flow revealed no significant aortic regurgitation. There is no significant aortic valvular stenosis. Calculated aortic valve area is 3.0 cm2 with maximum pressure gradient of 13 mmHg and mean pressure gradient of 6 mmHg. MITRAL VALVE The mitral valve is normal in structure and function. There is no evidence of mitral valve prolapse. There is no mitral valve stenosis. Doppler and Color Flow revealed no mitral valve regurgitation note d. TRICUSPID VALVE The tricuspid valve is normal in structure and function. Doppler and Color Flow revealed trace tricus pid regurgitation with an estimated PAP of 18 mmHg. There is no tricuspid valve stenosis. PULMONIC VALVE The pulmonary valve is normal in structure and function. Doppler and Color Flow revealed trace pulmon ic valvular regurgitation. GREAT VESSELS The aortic root is normal in size. The IVC is normal in size and collapses >50% with inspiration. PERICARDIAL EFFUSION There is no evidence of significant pericardial effusion. Critical Notification Critical Value: No <Conclusion> The left ventricle is normal size. The left ventricular systolic function is normal and the ejection fraction is within normal range. The Ejection Fraction is 55-60%. There is mild concentric left ventricular hypertrophy. There is normal LV segmental wall motion. Doppler and Color Flow revealed no significant aortic regurgitation. There is no significant aortic valvular stenosis. Doppler and Color Flow revealed no mitral valve regurgitation noted. Doppler and Color Flow revealed trace tricuspid regurgitation with an estimated PAP of 18 mmHg. Signed by : Iftikhar Dos Santos MD Electronically Approved : 09/13/2020 17:10:31
--- NOTE | 2020-09-13 19:13 | PN ---
DATE: 09/13/2020 SUBJECTIVE: The patient is resting, slightly propped up in bed, in no apparent distress. He has had no further episodes of chest pain. He did have an episode of nausea this morning. He has had 4 sets of cardiac enzymes, all negative. He was seen managed to get all his medication from his primary and apparently, he has had an echocardiogram that was not been read yet. He was seen by the Cardiology team and the plan was for him to have ischemic workup as an outpatient and to follow with the mix technician on 09/26/2020. PHYSICAL EXAMINATION: GENERAL: When I examined him this afternoon, he looked well and was clearly in no apparent respiratory distress. No pallor, jaundice, cyanosis or thyromegaly. No jugular venous distention. No lower limb edema. VITAL SIGNS: His heart rate was 65, blood pressure was 151/70, temperature was 97.7, respiratory rate was 20, and oxygen saturation was 94%. HEAD, EYES, EARS, NOSE AND THROAT: Showed normocephalic, atraumatic. NECK: Supple. HEART: Showed normal first and second heart sounds. No gallop or murmur. CHEST: Clear to auscultation. No crepitation or rhonchi. ABDOMEN: Distended, soft, nontender. NEUROLOGIC: He is awake, alert, responding appropriately. All cranial nerves intact. He moves his upper extremities better than his lower extremities. He has right-sided hemiparesis. He is mostly wheelchair bound. His intake was 2220, no output was recorded. LABORATORY STUDIES: His lab work showed that he has 3 sets of effort sets of cardiac enzymes that were negative. I did order fasting lipid profile, results of which is still pending. ASSESSMENT AND PLAN: 1. Chest pain, acute myocardial infarction was ruled out. 2. Coronary artery disease, status post percutaneous coronary intervention with stent deployment. 3. Hypertension. 4. Hyperlipidemia. 5. Cerebrovascular accident with right-sided weakness. PLAN: To await further results of the echocardiogram and if it is normal, he will be discharged with an outpatient appointment for ischemic evaluation with stress test. IZA CALLOWAY MD DR: RACHEL/ratna JOB#: [id number] / [id number]
[2020-09-13 19:40] VITALS: BP 118/73
[2020-09-14] MEDS ORDERED: ONDANSETRON PF 4 MG/2 ML VIAL. IVP PRN (00:30)
[2020-09-14 00:44] VITALS: BP 144/79
--- NOTE | 2020-09-14 07:47 | DS ---
DATE OF DISCHARGE: ATTENDING PHYSICIANS: Dr. Rodriguez and Dr. Beavers. FINAL DISCHARGE DIAGNOSES: 1. Atypical chest pain, coronary ischemia ruled out. 2. Known previous stroke with minimal residual deficit. 3. Hyperlipidemia. 4. Coronary artery disease. HISTORY AND PHYSICAL: This 54-year-old gentleman who was recently released from [facility] and is at the [facility], presented with atypical chest pain at rest, awakening him from sleep. Three nitroglycerins were administered. He was admitted for further treatment and evaluation. There is a previous history of angioplasty, stroke, 2 stents and laminectomy. PHYSICAL EXAMINATION: Please see the dictated note. PERTINENT LABORATORY AND X-RAY STUDIES: Four sets of cardiac enzymes were negative for coronary ischemia. His hemoglobin was 14.7 g/dL, white count 7200. Chemistry panel: Sodium was 136 mEq, potassium 4.5 mEq, creatinine was 0.8 mg/dL. Transaminases normal. Alkaline phosphatase of 146. Once again, four sets of enzymes negative for coronary ischemia. An echocardiogram done showed good ejection fraction estimated at 60%. EKG is nondiagnostic. Chest x-ray was clear. COURSE IN THE HOSPITAL: The patient was admitted. Serial enzymes were negative for coronary ischemia. The patient had Cardiology evaluation. Home meds were continued. He is already on Plavix. Arrangements were scheduled for ischemia stress test on 09/26. On the third hospital day, the patient was discharged home with no changes on his meds. He will continue his scheduled Plavix 75 mg p.o. daily, aspirin daily, Lipitor daily, Coreg 12.5 mg b.i.d., Imdur 30 mg daily, losartan/hydrochlorothiazide 50/12.5 one daily, nitroglycerin p.r.n., and oxcarbazepine 600 mg b.i.d. His prognosis is fair. He was discharged then in stable condition with explicit instructions and followup care. Tentative outpatient Cardiology evaluation and stress test 09/26/2020. TOTAL DISCHARGE TIME SPENT: 39 minutes. SUZETTE BEAVERS MD DR: BRANDEE/ratna JOB#: [id number] / [id number]
--- NOTE | 2020-09-14 08:27 | PDOC ---
CARDIO Progress Notes Date & Time Date of Service DATE: 09/14/20 TIME: 08:24 Time of Evaluation 08:24 Subjective Notes no chest pain, palpitations, dizziness, diaphoresis, nausea/vomiting, or SOA Vitals Vitals Vital Signs Date Time Temp Pulse Resp B/P (MAP) Pulse Ox O2 Delivery O2 Flow Rate FiO2 09/14/20 00:44 97.8 59 20 144/79 (100) 94 Room Air Weight Weight [ ] Input and Output I.O. Intake and Output 09/14/20 07:00 Intake Total 1840 ml Balance 1840 ml Intake Oral 1840 ml # Voids 7 # Bowel Movements 1 Laboratory Labs Laboratory Tests Test 09/12/20 12:18 09/12/20 12:40 09/12/20 18:15 09/12/20 21:48 White Blood Count 7.2 x10^3/uL (4.0-11.0) Red Blood Count 4.78 x10^6/uL (4.30-5.70) Hemoglobin 14.7 g/dL (13.0-17.5) Hematocrit 43.0 % (39.0-53.0) Mean Corpuscular Volume 90 fL (79-100) Mean Corpuscular Hemoglobin 31 pg (25-35) Mean Corpuscular Hemoglobin Concent 34 g/dL (31-37) Red Cell Distribution Width 13.8 % (11.5-14.5) Platelet Count 192 x10^3/uL (140-400) Neutrophils (%) (Auto) 54 % (31-73) Lymphocytes (%) (Auto) 31 % (24-48) Monocytes (%) (Auto) 11 % (0-9) Eosinophils (%) (Auto) 3 % (0-3) Basophils (%) (Auto) 1 % (0-3) Neutrophils # (Auto) 3.9 x10^3uL (1.8-7.7) Lymphocytes # (Auto) 2.2 x10^3/uL (1.0-4.8) Monocytes # (Auto) 0.8 x10^3/uL (0.0-1.1) Eosinophils # (Auto) 0.2 x10^3/uL (0.0-0.7) Basophils # (Auto) 0.1 x10^3/uL (0.0-0.2) Prothrombin Time 10.0 SEC (9.4-11.4) Prothromb Time International Ratio 1.0 (0.9-1.1) Activated Partial Thromboplast Time 24 SEC (23-33) D-Dimer (Elza) 0.21 mg/L (0.00-0.50) Sodium Level 136 mmol/L (136-145) Potassium Level 4.5 mmol/L (3.5-5.1) Chloride Level 102 mmol/L (98-107) Carbon Dioxide Level 27 mmol/L (21-32) Anion Gap 7 (6-14) Blood Urea Nitrogen 21 mg/dL (8-26) Creatinine 0.8 mg/dL (0.7-1.3) Estimated GFR (Cockcroft-Gault) 100.4 BUN/Creatinine Ratio 26 (6-20) Glucose Level 96 mg/dL (70-99) Calcium Level 8.7 mg/dL (8.5-10.1) Total Bilirubin 0.4 mg/dL (0.2-1.0) Aspartate Amino Transf (AST/SGOT) 21 U/L (15-37) Alanine Aminotransferase (ALT/SGPT) 48 U/L (16-63) Alkaline Phosphatase 146 U/L (46-116) Creatine Kinase 117 U/L (39-308) Creatine Kinase MB (Mass) 1.0 ng/mL (0.0-3.6) Creatine Kinase MB Relative Index 0.9 % (0-4) Troponin I Quantitative < 0.017 ng/mL (0-0.055) < 0.017 ng/mL (0-0.055) < 0.017 ng/mL (0-0.055) WX-Ryx-E-Type Natriuretic Peptide 76 pg/mL (0-124) Total Protein 6.7 g/dL (6.4-8.2) Albumin 3.8 g/dL (3.4-5.0) Albumin/Globulin Ratio 1.3 (1.0-1.7) Urine Collection Type Unknown Urine Color Yellow Urine Clarity Clear Urine pH 6.5 Urine Specific [place] 1.020 Urine Protein Neg (NEG-TRACE) Urine Glucose (UA) Neg mg/dL (NEG) Urine Ketones (Stick) Neg mg/dL (NEG) Urine Blood Trace (NEG) Urine Nitrite Neg (NEG) Urine Bilirubin Neg (NEG) Urine Urobilinogen Dipstick 2.0 mg/dL (0.2 mg/dL) Urine Leukocyte Esterase Neg (NEG) Urine RBC 1-2 /HPF (0-2) Urine WBC Occ /HPF (0-4) Urine Squamous Epithelial Cells Few /LPF Urine Bacteria 0 /HPF (0-FEW) Urine Opiates Screen Neg (NEG) Urine Methadone Screen Neg (NEG) Urine Barbiturates Neg (NEG) Urine Phencyclidine Screen Neg (NEG) Urine Amphetamine/Methamphetamine Neg (NEG) Urine Benzodiazepines Screen Neg (NEG) Urine Cocaine Screen Neg (NEG) Urine Cannabinoids Screen Neg (NEG) Urine Ethyl Alcohol Neg (NEG) Test 09/13/20 05:53 09/13/20 11:20 Triglycerides Level 117 mg/dL (0-150) Cholesterol Level 143 mg/dL (0-200) LDL Cholesterol, Calculated 74 mg/dL (0-100) VLDL Cholesterol, Calculated 23 mg/dL (0-40) Non-HDL Cholesterol Calculated 97 mg/dL (0-129) HDL Cholesterol 46 mg/dL (40-60) Cholesterol/HDL Ratio 3.0 Troponin I Quantitative < 0.017 ng/mL (0-0.055) Physical Exams HEENT: Neck Supple W Full Motion Chest: Symmetric Lungs: Clear to Auscultation Heart: RRR Abdomen: Soft N/T Extremities: No Edema Neurology: alert, oriented, follow commands Assessment Assessment 1. Chest pain, mixed features; AMI ruled out. EKG without acute changes. Echo with preserved LV systolic function. No WMA 2. CAD s/p PCI/stents 08/27 in [place] 3. Hypertension; improved 4. Hyperlipidemia; statin 6. CVA with right sided weakness 7. Nausea; resolved Recommendations Continue secondary prevention measures including ASA/Plavix, Coreg, statin, and Imdur Outpatient ischemic evaluation with stress test as arranged Patient has follow up scheduled with Dr. Allen 09/26/19 at 1:15pm Okay to discharge from a CV standpoint. STEFANIE STOLL APRN Sep 14, 2020 08:27
[2020-09-14] MEDS ORDERED: CARV12.547 PO (08:29)
[2020-09-14] MEDS: CARVEDILOL 12.5 MG TABLET PO SCH (09:13)
[2020-09-14] MEDS: ATORVASTATIN CALCIUM 20 MG TABLET PO SCH (09:13)
[2020-09-14] MEDS: ISOSORBIDE MONONITRATE ER 30 MG TAB.ER.24H PO SCH (09:13)
[2020-09-14] MEDS: CLOPIDOGREL BISULFATE 75 MG TABLET PO SCH (09:13)
[2020-09-14 09:14] VITALS: BP 144/79
[2020-09-14] MEDS: hydroCHLOROthiazide 12.5 MG CAPSULE PO SCH (09:14)
[2020-09-14] MEDS: ASPIRIN CHEWABLE 81 MG TABLET. PO SCH (09:14)
[2020-09-14] MEDS: LOSARTAN 50 MG TABLET. PO SCH (09:14)
--- NOTE | 2020-09-14 11:23 | NUR ---
NSG NOTE; DISCHARGE WRITTEN AND VERBAL DISCHARGE INSTRUCTIONS GIVEN TO PT WITH VERBAL UNDERSTANDING WRITTEN RX X1 GIVEN TO PT DISCHARGED FOR RETURN TO [facility] AT 1120 VIA W/C ACCOMP BY TRANSPORT PERSONNEL WHO PICKED HIM UP
== END 2020-09-14 11:20 | disposition home or self-care (01) ==
LOC: ER 11:57 → 1 SOUTH 13:30 → ER 13:40
PROVIDERS: ADMIT Internal Medicine; ATTEND Internal Medicine
DX: I25.10 Atherosclerotic heart disease of native coronary artery without angina pectoris (principal); I10 Essential (primary) hypertension; I25.119 Atherosclerotic heart disease of native coronary artery with unspecified angina pectoris; I63.9 Cerebral infarction, unspecified; I69.351 Hemiplegia and hemiparesis following cerebral infarction affecting right dominant side; E78.5 Hyperlipidemia, unspecified; E78.00 Pure hypercholesterolemia, unspecified; M79.89 Other specified soft tissue disorders; R29.700 NIHSS score 0; Z79.899 Other long term (current) drug therapy; Z98.890 Other specified postprocedural states; Z95.1 Presence of aortocoronary bypass graft; Z79.82 Long term (current) use of aspirin; Z79.02 Long term (current) use of antithrombotics/antiplatelets; Z95.5 Presence of coronary angioplasty implant and graft
CPT/HCPCS: 36415; 71045; 80053; 80061; 80307; 81001; 82553; 83880; 84484; 85025; 85379; 85610; 85730; 93005; 93306; 93971; 96374; 96376; 99285; G0378; J2405; J7030; G0379

== ENCOUNTER 2020-10-07 21:51 | Emergency (ER) | payer OTHER ==
[~2020-10-07] VITALS: Ht 180.3 cm; Wt 115.0 kg
[~2020-10-07 21:51] MED LIST: ASPI-630 PO; ATORVASTATIN CA80 MG PO; CARV12.547 PO; CLOP75TA PO; IBUP400T18 PO; ISOS120T4 PO; ISOS30TA68 PO; LOSA1TAB19 PO; METOPROLOL; NITR0.4T22 SL; OXYCARBAZEPINE
[2020-10-07] MEDS ORDERED: RINGERS LACTATED IV ONE (22:00)
--- NOTE | 2020-10-07 22:51 | RAD ---
CT Head W/O Contrast: History: Reason: syncope / Spl. Instructions: / History: Comparison: none Axial images were obtained without contrast. The caldwell and white matter appears normal and symmetrical for the patients age. There is no mass effe ct, extraaxial fluid collections or hydrocephalus. There is no gross bleed. There is no focal loss of caldwell-white matter distinction to suggest acute ischemia, i.e. stroke. Impression: No acute findings. RS Compliance Statement: One or more of the following individualized dose reduction techniques were utilized for this examinat ion: 1. Automated exposure control 2. Adjustment of the mA and/or kV according to patient size 3. Use of iterative reconstruction technique Electronically signed by: Santo Lind III, MD (10/07/2020 10:48 PM) [facility]
[2020-10-07 23:07] LABS: BASO # 0.1 x10^3/uL (0.0-0.2); BASO % 1 % (0-3); EOS # 0.1 x10^3/uL (0.0-0.7); EOS % 2 % (0-3); HEMATOCRIT 46.4 % (39.0-53.0); HEMOGLOBIN 15.3 g/dL (13.0-17.5); LYMPH # 2.4 x10^3/uL (1.0-4.8); LYMPH % 29 % (24-48); MEAN CORPUSCULAR HEMOGLOBIN 31 pg (25-35); MEAN CORPUSCULAR HGB CONC 33 g/dL (31-37); MEAN CORPUSCULAR VOLUME 93 fL (79-100); MONO # 1.2 x10^3/uL (0.0-1.1); MONO % 14 % (0-9); NEUT # 4.5 x10^3uL (1.8-7.7); NEUT % 54 % (31-73); PLATELET COUNT 265 x10^3/uL (140-400); RED BLOOD COUNT 5.01 x10^6/uL (4.30-5.70); RED CELL DISTRIBUTION WIDTH 13.8 % (11.5-14.5); WHITE BLOOD COUNT 8.3 x10^3/uL (4.0-11.0)
[2020-10-07 23:14] LABS: CALCIUM 8.6 mg/dL (8.5-10.1); CREATININE 1.2 mg/dL (0.7-1.3); GFR 62.9; POTASSIUM 4.2 mmol/L (3.5-5.1)
[2020-10-07 23:19] LABS: ALBUMIN 3.7 g/dL (3.4-5.0); ALBUMIN/GLOBULIN RATIO 1.1 (1.0-1.7); TOTAL BILIRUBIN 0.4 mg/dL (0.2-1.0); TOTAL PROTEIN 7.1 g/dL (6.4-8.2)
[2020-10-07 23:32] LABS: % BANDS 1 % (0-9); % EOS 3 % (0-5); % LYMPHS 31 % (24-48); % MONOS 10 % (0-10); % SEGS 55 % (35-66); PLT ESTIMATE ADEQUATE (ADEQUATE)
--- NOTE | 2020-10-07 23:44 | RAD ---
Chest AP portable at 2223: Reason for examination: Cardiac workup. Syncope. Comparison is made to previous study dated 09/22/2020. The heart size is normal. Mediastinum is unremarkable. Lung dennis are clear. No acute bony abnormali ties are seen. Impression: No acute cardiopulmonary disease. Electronically signed by: Priyanka Tirado MD (10/07/2020 11:42 PM) [place]
[2020-10-08] MEDS ORDERED: ACETAMINOPHEN 500 MG TABLET PO ONE
[2020-10-08] MEDS ORDERED: MORPHINE SULFATE 4 MG/ML DISP.SYRIN. IV ONE
[2020-10-08 02:00] VITALS: BP 150/72
--- NOTE | 2020-10-08 02:13 | PHYS DOC ---
Past History Past Medical History: High Cholesterol, Hypertension, Other Additional Past Medical Histor: SEASONAL ALLERGIES Past Surgical History: Angioplasty Additional Past Surgical Histo: 2 stents, LAMINECTOMY Alcohol Use: None Adult General Chief Complaint Chief Complaint: SYNCOPE HPI HPI Patient is a 54-year-old male with a past medical history significant for cardiovascular disease and stenting, status post heart catheterization today, distant history of seizures on seizure medication who presents with a chief complaint of presyncope/syncope. Patient states that he had a scheduled heart catheterization for today at [facility]. States he was n.p.o. since last night, came into the hospital this morning and had the heart catheterization. States he did not receive any stents or had balloon cindi oplasty. States he got home at about 6 PM and was feeling well. States he was sitting in his room talking with some people just after eating got lightheaded and passed out while sitting in the chair. According to the people at the nursing/rehab facility he passed out for approximately a minute and was still breathing and had a pulse with no change in color. States when he woke up he remembers still sitting in his chair and talking to the worker and asked what happened. States he has had seizures in the distant past, is on medication but has not had one in years. States this felt nothing like that and when he woke up he had an idea of what was happening and was not confused. States when he woke up he had a mild whole head headache, dull and achy in nature, 6 out of 10. Denies any changes in vision, neck pain, trouble swallowing, chest pain, shortness of breath, abdominal pain, nausea, vomiting, diarrhea, dysuria, hematuria or blood in the stool. Patient states other than the mild headache he feels well and wondered even if he should have came to the emergency department. Review of Systems Review of Systems Review of systems otherwise unremarkable except noted in HPI. Current Medications Current Medications Current Medications Medications (Trade) Dose Ordered Sig/Jenniffer Start Time Stop Time Status Last Admin Dose Admin Acetaminophen (Tylenol) 1,000 mg 1X ONCE 10/08/20 00:00 10/08/20 00:01 DC 10/07/20 23:52 1,000 MG Lactated Ringer's 250 ml @ 250 mls/hr 1X ONCE 10/07/20 22:00 10/07/20 22:59 DC 10/07/20 22:00 250 MLS/HR Morphine Sulfate (Morphine 4mg Syringe) 4 mg 1X ONCE 10/08/20 00:00 10/08/20 00:01 DC 10/07/20 23:53 4 MG Allergies Allergies Allergies Coded Allergies Type Severity Reaction Last Updated Verified Sulfa (Sulfonamide Antibiotics) Allergy Intermediate 10/07/20 Yes Physical Exam Physical Exam Constitutional: Well developed, well nourished, no acute distress, non-toxic appearance. [] HENT: Normocephalic, atraumatic, oropharynx moist, no oral exudates, nose normal. [] Eyes: PERRLA, EOMI, conjunctiva normal, no discharge. [] Neck: Normal range of motion, no tenderness, Cardiovascular: Tachycardia, systolic murmur. Lungs & Thorax: Bilateral breath sounds clear to auscultation [] Abdomen: soft, no tenderness, no masses, no pulsatile masses. [] Skin: Warm, dry, no erythema, no rash. [] Back: No tenderness, no CVA tenderness. [] Extremities: No tenderness, no cyanosis, no clubbing, ROM intact, no edema. [] Neurologic: Alert and oriented X 3, normal motor function, normal sensory function, no focal deficits noted. [] Psychologic: Affect normal, judgement normal, mood normal. [] Current Patient Data Vital Signs Vital Signs Date Time Temp Pulse Resp B/P (MAP) Pulse Ox O2 Delivery O2 Flow Rate FiO2 10/08/20 00:45 158/78 (104) 10/08/20 00:13 76 20 95 10/07/20 23:53 Room Air 10/07/20 22:53 97.6 Lab Results Laboratory Tests Test 10/07/20 22:46 10/08/20 00:45 White Blood Count 8.3 x10^3/uL (4.0-11.0) Red Blood Count 5.01 x10^6/uL (4.30-5.70) Hemoglobin 15.3 g/dL (13.0-17.5) Hematocrit 46.4 % (39.0-53.0) Mean Corpuscular Volume 93 fL (79-100) Mean Corpuscular Hemoglobin 31 pg (25-35) Mean Corpuscular Hemoglobin Concent 33 g/dL (31-37) Red Cell Distribution Width 13.8 % (11.5-14.5) Platelet Count 265 x10^3/uL (140-400) Neutrophils (%) (Auto) 54 % (31-73) Lymphocytes (%) (Auto) 29 % (24-48) Monocytes (%) (Auto) 14 % (0-9) H Eosinophils (%) (Auto) 2 % (0-3) Basophils (%) (Auto) 1 % (0-3) Neutrophils # (Auto) 4.5 x10^3uL (1.8-7.7) Lymphocytes # (Auto) 2.4 x10^3/uL (1.0-4.8) Monocytes # (Auto) 1.2 x10^3/uL (0.0-1.1) H Eosinophils # (Auto) 0.1 x10^3/uL (0.0-0.7) Basophils # (Auto) 0.1 x10^3/uL (0.0-0.2) Segmented Neutrophils % 55 % (35-66) Band Neutrophils % 1 % (0-9) Lymphocytes % 31 % (24-48) Monocytes % 10 % (0-10) Eosinophils % 3 % (0-5) Platelet Estimate Adequate (ADEQUATE) Sodium Level 138 mmol/L (136-145) Potassium Level 4.2 mmol/L (3.5-5.1) Chloride Level 103 mmol/L (98-107) Carbon Dioxide Level 28 mmol/L (21-32) Anion Gap 7 (6-14) Blood Urea Nitrogen 17 mg/dL (8-26) Creatinine 1.2 mg/dL (0.7-1.3) Estimated GFR (Cockcroft-Gault) 62.9 BUN/Creatinine Ratio 14 (6-20) Glucose Level 105 mg/dL (70-99) H Calcium Level 8.6 mg/dL (8.5-10.1) Magnesium Level 2.1 mg/dL (1.8-2.4) Total Bilirubin 0.4 mg/dL (0.2-1.0) Aspartate Amino Transferase (AST) 21 U/L (15-37) Alanine Aminotransferase (ALT) 49 U/L (16-63) Alkaline Phosphatase 160 U/L (46-116) H Troponin I Quantitative < 0.017 ng/mL (0-0.055) < 0.017 ng/mL (0-0.055) Total Protein 7.1 g/dL (6.4-8.2) Albumin 3.7 g/dL (3.4-5.0) Albumin/Globulin Ratio 1.1 (1.0-1.7) EKG EKG Tachycardia, normal QRS, normal QTC, no STEMI [] Radiology/Procedures Radiology/Procedures []Comparison: none Axial images were obtained without contrast. The caldwell and white matter appears normal and symmetrical for the patients age. There is no mass effect, extraaxial fluid collections or hydrocephalus. There is no gross bleed. There is no focal loss of caldwell-white matter distinction to suggest acute ischemia, i.e. stroke. Impression: No acute findings. PQRS Compliance Statement: One or more of the following individualized dose reduction techniques were utilized for this examination: Chest AP portable at 2223: Reason for examination: Cardiac workup. Syncope. Comparison is made to previous study dated 09/22/2020. The heart size is normal. Mediastinum is unremarkable. Lung dennis are clear. No acute bony abnormalities are seen. Impression: No acute cardiopulmonary disease. Electronically signed by: Priyanka Tirado MD (10/07/2020 11:42 PM) [facility] Heart Score Risk Factors: Risk Factors: DM, Current or recent (<one month) smoker, HTN, HLP, family history of CAD, obesity. Risk Scores: Risk Factors: DM, Current or recent (<one month) smoker, HTN, HLP, family history of CAD, obesity. Course & Med Decision Making Course & Med Decision Making Patient is a 54-year-old male who presents to the emergency department with a chief complaint of syncope Vital signs notable for tachycardia, which resolved in the ED. Physical exam noted above. EKG not concerning. Troponin x2 not concerning. Catheter site soft nontender with only mild bruising. Chest x-ray not concerning. Head CT not concerning. Basic laboratory analysis not concerning. TSH pending. While in the ED patient took p.o. without issue. Given pain medication for headache. Patient able to sleep without issue. On reassessment discussed all findings with patient and offered admission for observation and repeat EKGs and troponins. Patient stated he was feeling much better, his headache was gone and did not feel that he needed to stay in the hospital or go back over to [place]. Discussed with patient the risks given his cardiovascular history and recent catheterization including but not limited to infection, syncope and fall, ca rdiac damage, significant morbidity and even mortality. Patient states that he thinks it was just because he had had much to eat, and had anesthesia. Stated he felt back to baseline and was ready to go back home. Advised patient to call his galley hand first thing Saturday morning to update on ED visit. Advised to come back to the emergency department immediately with any new or concerning symptoms. Patient grateful, verbalized understanding and agreed with plan of discharge. [] Dragon Disclaimer Dragon Disclaimer This electronic medical record was generated, in whole or in part, using a voice recognition dictation system. Departure Departure: Impression: Primary Impression: Syncope Disposition: 01 DC HOME SELF CARE/HOMELESS Condition: GOOD Referrals: TONI HANEY (PCP) Patient Instructions: Syncope Additional Instructions: Please read all the attached information. Please make sure to stay hydrated and eat appropriately. Please take all your medications as prescribed. As discussed please call your galley hand first thing Saturday to discuss ED visit and set up follow-up visit. As discussed, have a low threshold to return to the ED and come back immediately if you have any new or concerning symptoms as discussed. MAYELIN PARISI MD Oct 08, 2020 02:13
--- NOTE | 2020-10-08 07:34 | EKG ---
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
== END 2020-10-08 02:20 | disposition home or self-care (01) ==
LOC: ER 21:51
DX: R55 Syncope and collapse (principal); R42 Dizziness and giddiness; R51.9 Headache, unspecified; I25.10 Atherosclerotic heart disease of native coronary artery without angina pectoris; E78.00 Pure hypercholesterolemia, unspecified; I10 Essential (primary) hypertension; Z98.61 Coronary angioplasty status; Z88.2 Allergy status to sulfonamides
CPT/HCPCS: 36415; 70450; 71045; 80053; 83735; 84443; 84484; 85007; 85025; 93005; 96361; 96374; 99285; J2270; J7120

== ENCOUNTER 2020-10-25 18:52 | Emergency (ER) | payer OTHER ==
[~2020-10-25] VITALS: Ht 177.8 cm; Wt 109.1 kg
--- NOTE | 2020-10-25 19:46 | RAD ---
EXAM: XR CHEST 1V 10/25/2020 7:31 PM CLINICAL INDICATION: Shortness of breath COMPARISON: Chest radiograph 10/07/2020 TECHNIQUE: AP upright view of the chest FINDINGS: The heart and mediastinum are normal. Lungs are well-expanded. There is minimal linear at electasis in the left lung base. No consolidation, pleural effusion, or pneumothorax. Pulmonary vas cularity is normal. The thoracic skeleton is intact. IMPRESSION: No acute cardiopulmonary abnormality. Electronically signed by: Jessica Keenan MD (10/25/2020 7:44 PM) [id number]
--- NOTE | 2020-10-25 19:48 | PHYS DOC ---
Past History Past Medical History: High Cholesterol, Hypertension, Other Additional Past Medical Histor: SEASONAL ALLERGIES Past Surgical History: Angioplasty Additional Past Surgical Histo: 2 stents, LAMINECTOMY Alcohol Use: None Adult General Chief Complaint Chief Complaint: CHEST PAIN HPI HPI Patient is a 55-year-old male with a past medical history significant for CAD, status post stent placement on aspirin and Plavix, hypertension and hyperlipidemia as well as CVA who presents with a chief complaint of shortness of breath. Patient states he has been doing well up until about an hour or 2 ago when he was taking a nap and woke up secondary to shortness of breath. States that he worked earlier in the day and had no issues with shortness of breath, chest pain, headache, abdominal pain, nausea, vomiting, dysuria, hematuria or blood in the stool. States he has been otherwise eating and drinking normally for him. States he is making urine and stool normally for him with no blood in either. Endorses dyspnea on exertion for the last 2 hours but no orthopnea or PND. Does endorse bilateral lower extremity swelling. Denies any recent travel, illnesses, fevers, Covid/flu symptoms. Review of Systems Review of Systems Review of systems otherwise unremarkable except noted in HPI Allergies Allergies Allergies Coded Allergies Type Severity Reaction Last Updated Verified Sulfa (Sulfonamide Antibiotics) Allergy Intermediate 10/07/20 Yes Physical Exam Physical Exam Constitutional: Well developed, well nourished, no acute distress, non-toxic appearance. [] HENT: Normocephalic, atraumatic, oropharynx moist, no oral exudates, Eyes: , conjunctiva normal, no discharge. [] Neck: Normal range of motion, no tenderness, supple, no stridor. [] Cardiovascular:Heart rate regular rhythm, no murmur [] Lungs & Thorax: Bilateral breath sounds clear to auscultation [] Abdomen: soft, no tenderness, no masses, no pulsatile masses. [] Skin: Warm, dry, no erythema, no rash. [] Back: No tenderness, Extremities: No tenderness, no cyanosis, no clubbing, ROM intact, mild nonpitting edema] Neurologic: Alert and oriented X 3, normal motor function, normal sensory function, no focal deficits noted. [] Psychologic: Affect normal, judgement normal, mood normal. [] EKG EKG EKG with a rate of 78, QRS of 88, QTc of 425, no STEMI [] Repeat EKG with a rate of 59, QRS of 90, QTc of 414, no STEMI Radiology/Procedures Radiology/Procedures []TECHNIQUE: AP upright view of the chest FINDINGS: The heart and mediastinum are normal. Lungs are well-expanded. There is minimal linear atelectasis in the left lung base. No consolidation, pleural effusion, or pneumothorax. Pulmonary vascularity is normal. The thoracic skeleton is intact. IMPRESSION: No acute cardiopulmonary abnormality. Electronically signed by: Jessica Keenan MD (10/25/2020 7:44 PM) [id number] Heart Score HEART Score for Chest Pain: HEART Score for Chest Pain Response (Comments) Value History Moderately Suspicious 1 ECG Normal 0 Age >45 - < 65 1 Risk Factors >3 Risk Factors or Hx CAD 2 Troponin < Normal Limit 0 Total 4 Risk Factors: Risk Factors: DM, Current or recent (<one month) smoker, HTN, HLP, family history of CAD, obesity. Risk Scores: Risk Factors: DM, Current or recent (<one month) smoker, HTN, HLP, family history of CAD, obesity. Course & Med Decision Making Course & Med Decision Making Patient is a 55-year-old male who presents with a chief complaint of acute onset shortness of breath and dyspnea on exertion Vital signs notable for tachypnea. Physical exam noted above. Patient placed on the monitor with IV access established. EKG noted above and not concerning for STEMI. Initial troponin normal. Repeat EKG noted above and not concerning for STEMI. Repeat troponin normal. D-dimer normal. Chest x-ray normal. On reassessment patient was asymptomatic with normal vital signs. Discussed options of staying the night for observation and serial EKGs and troponins versus going home and following up with primary care physician. Patient stated he was feeling well and felt he could be discharged home and would follow-up with his primary care physician. Advised to follow-up first thing tomorrow with his primary care physician. Gave strict return precautions to the ED. Patient grateful, verbalized understanding and agreed with plan of discharge. [] Dragon Disclaimer Dragon Disclaimer This electronic medical record was generated, in whole or in part, using a voice recognition dictation system. Departure Departure: Impression: Primary Impression: SOB (shortness of breath) on exertion Disposition: 01 DC HOME SELF CARE/HOMELESS Condition: GOOD Referrals: TONI HANEY (PCP) Patient Instructions: Shortness of Breath, [id number] Additional Instructions: Please read all the attached information. Please continue to take all your medications as prescribed. You are given your nighttime dose of losartan. Please continue all of your meds as scheduled. Please call your primary care physician first thing in the morning to discuss ED visit and set up a post ER follow-up visit as soon as you can. Please come back to the ED with new or concerning symptoms. MAYELIN PARISI MD Oct 25, 2020 19:48
[2020-10-25 19:52] LABS: CALCIUM 9.4 mg/dL (8.5-10.1); CREATININE 1.1 mg/dL (0.7-1.3); GFR 69.2; POTASSIUM 4.5 mmol/L (3.5-5.1)
[2020-10-25 19:54] LABS: BASO # 0.1 x10^3/uL (0.0-0.2); BASO % 1 % (0-3); EOS # 0.2 x10^3/uL (0.0-0.7); EOS % 2 % (0-3); HEMATOCRIT 43.2 % (39.0-53.0); HEMOGLOBIN 14.4 g/dL (13.0-17.5); LYMPH # 2.2 x10^3/uL (1.0-4.8); LYMPH % 24 % (24-48); MEAN CORPUSCULAR HEMOGLOBIN 31 pg (25-35); MEAN CORPUSCULAR HGB CONC 33 g/dL (31-37); MEAN CORPUSCULAR VOLUME 92 fL (79-100); MONO # 1.1 x10^3/uL (0.0-1.1); MONO % 13 % (0-9); NEUT # 5.4 x10^3uL (1.8-7.7); NEUT % 60 % (31-73); PLATELET COUNT 224 x10^3/uL (140-400); RED BLOOD COUNT 4.69 x10^6/uL (4.30-5.70)
[2020-10-25 20:05] LABS: ALBUMIN 3.6 g/dL (3.4-5.0); ALBUMIN/GLOBULIN RATIO 1.2 (1.0-1.7); TOTAL BILIRUBIN 0.3 mg/dL (0.2-1.0); TOTAL PROTEIN 6.6 g/dL (6.4-8.2)
--- NOTE | 2020-10-25 22:35 | EKG ---
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
--- NOTE | 2020-10-25 22:36 | EKG ---
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
[2020-10-25] MEDS ORDERED: LOSARTAN 50 MG TABLET. PO SCH (23:00)
[2020-10-25 23:16] VITALS: BP 165/60
== END 2020-10-25 23:20 | disposition home or self-care (01) ==
LOC: ER 18:52
DX: R06.02 Shortness of breath (principal); R06.09 Other forms of dyspnea; R60.1 Generalized edema; E78.00 Pure hypercholesterolemia, unspecified; I10 Essential (primary) hypertension; Z88.2 Allergy status to sulfonamides
CPT/HCPCS: 36415; 71045; 80053; 83735; 83880; 84484; 85025; 85379; 93005; 99285

== ENCOUNTER 2021-04-19 19:02 | Emergency (ER) | payer SELFPAY ==
[~2021-04-19] VITALS: Ht 177.8 cm; Wt 109.1 kg
--- NOTE | 2021-04-19 19:32 | PHYS DOC ---
Past History Past Medical History: CVA, High Cholesterol, Hypertension, [place], Other Additional Past Medical Histor: SEASONAL ALLERGIES, cva 06/2020, mi 2018(multiple) Past Surgical History: Angioplasty Additional Past Surgical Histo: 2 stents, LAMINECTOMY Alcohol Use: None General Adult EDM: Chief Complaint: CHEST PAIN HPI: HPI: 55-year-old male presents with chest pain and cough. The patient has been having intermittent chest pains for more than a week. It has been worse the last couple of days. He tells me that pain is a pressure sensation that is worse with his coughing. His cough is also gotten worse. The patient had COVID-19 last June. He has had 2 stents in 2018 and a stroke in early June 2020. The patient has had shortness of breath but no diaphoresis. He denies fever or chills. Review of Systems: Review of Systems: Constitutional: Denies fever or chills Eyes: Denies change in visual acuity HENT: Denies nasal congestion or sore throat Respiratory: Cough with shortness of breath Cardiovascular: Chest pain GI: Denies abdominal pain, nausea, vomiting, bloody stools or diarrhea : Denies dysuria Musculoskeletal: Denies back pain or joint pain Integument: Denies rash Neurologic: Denies headache, focal weakness or sensory changes Endocrine: Denies polyuria or polydipsia Lymphatic: Denies swollen glands Psychiatric: Denies depression or anxiety Allergies: Allergies: Allergies Coded Allergies Type Severity Reaction Last Updated Verified Sulfa (Sulfonamide Antibiotics) Allergy Intermediate 10/07/20 Yes Physical Exam: PE: Constitutional: Well developed, well nourished, no acute distress, non-toxic appearance. [] HENT: Normocephalic, atraumatic, bilateral external ears normal, oropharynx moist, no oral exudates, nose normal. [] Eyes: PERRLA, EOMI, conjunctiva normal, no discharge. [] Neck: Normal range of motion, no tenderness, supple, no stridor. [] Cardiovascular: Heart rate regular rhythm, no murmur [] Lungs & Thorax: Coughing. Bilateral breath sounds clear to auscultation [] Abdomen: Bowel sounds normal, soft, no tenderness, no masses, no pulsatile masses. [] Skin: Warm, dry, no erythema, no rash. [] Back: No tenderness, no CVA tenderness. [] Extremities: No tenderness, no cyanosis, no clubbing, ROM intact, no edema. [] Neurologic: Alert and oriented X 3, normal motor function, normal sensory function, no focal deficits noted. [] Psychologic: Affect normal, judgement normal, mood normal. [] EKG: EKG: Sinus rhythm, rate 83, normal axis, no ST elevation or depression. [] Radiology/Procedures: Radiology/Procedures: [] Impressions: XR CHEST 1V History: Chest pain Comparison: 10/25/2020 Technique: AP radiograph of the chest. Findings: The lungs are adequately and symmetrically inflated. No airspace consolidation, pleural effusion or pneumothorax. The cardiomediastinal silhouette and pulmonary vasculature are within normal limits. No acute osseous abnormality. Soft tissues are unremarkable. Impression: 1. No acute cardiopulmonary process. Electronically signed by: Darrick Atkins MD (04/19/2021 8:41 PM) [facility] DICTATED AND SIGNED BY: DARRICK ATKINS MD DATE: 04/19/212039 CC: DOUG BEACH DO; PCP,NO ~MTH0 0 Heart Score: C/O Chest Pain: Yes HEART Score for Chest Pain: HEART Score for Chest Pain Response (Comments) Value History Slighlty/Non-Suspicious 0 ECG Normal 0 Age >45 - < 65 1 Risk Factors >3 Risk Factors or Hx CAD 2 Troponin < Normal Limit 0 Total 3 Risk Factors: Risk Factors: DM, Current or recent (<one month) smoker, HTN, HLP, family history of CAD, obesity. Risk Scores: Score 0 - 3: 2.5% MACE over next 6 weeks - Discharge Home Score 4 - 6: 20.3% MACE over next 6 weeks - Admit for Clinical Observation Score 7 - 10: 72.7% MACE over next 6 weeks - Early Invasive Strategies Course & Med Decision Making: Course & Med Decision Making Pertinent Labs and Imaging studies reviewed. (See chart for details) The patient's EKG is unremarkable. His labs are unremarkable. His troponin is negative. His chest x-ray is negative for acute findings. His heart score is a 3. This does not appear to be cardiopulmonary in origin. He likely has a viral syndrome. He is stable for discharge at this time. This could be COVID- 19. [] [place] Disclaimer: Phyllis Disclaimer: This electronic medical record was generated, in whole or in part, using a voice recognition dictation system. Departure Departure: Impression: Primary Impression: Chest pain of uncertain etiology Additional Impressions: Viral syndrome Suspected 2019 novel coronavirus infection Disposition: HOME / SELF CARE / HOMELESS Condition: STABLE Referrals: PCPJIE (PCP) Patient Instructions: Viral Syndrome Additional Instructions: You have been tested for or diagnosed with COVID-19. It is an infection caused by a new type of coronavirus. COVID-19 will cause cold-like or mild flu symptoms in most. It can cause more severe symptoms like problems breathing in some. There is no treatment for COVID-19. The body will clear the infection over time. Self-care will help to ease discomfort. Steps to Take: Self-Care Rest as needed. Healthy habits may help you feel better. Steps include: Choose healthy foods including fruits and vegetables. Drink water throughout the day. Get plenty of sleep each night. If you smoke, try to quit. It may ease breathing. Avoid alcohol. Keep Others Healthy The virus can spread to others. Droplets are released every time you sneeze or cough. The droplets can get into the mouth, nose, or eyes of people near you and lead to infection. To lower the chances of spreading COVID-19 to others: Stay at home until your doctor has said it is safe to leave. If you tested positive this will mean staying isolated until both of the following are true: At least 7 days have passed since the start of illness. You are free of fever for at least 72 hours without the use of medicine. During this time: - Avoid public areas, events, or transportation. Do not return to work or school until your doctor has said it is safe to do so. - Call ahead if you need to go to a medical center. Let them know you may have COVID-19. It will help them guide you where to go. They may also ask you to wear a facemask when you come to the office. - If you call for emergency medical services, let them know you may have COVID- 19. While at home: - Try to avoid close contact with others. Stay about 6 feet away. - If possible, spend most of your time in a separate room from others. - Use a face mask if you will be in close contact with others such as sharing a room or vehicle. - Have someone wipe down common surfaces in the home. Use household plastic design applier every day on areas like doorknobs, counters, or sinks. - Cough or sneeze into a tissue. Throw the tissue away right after use. If a tissue is not available, cough or sneeze into your elbow. - Wash your hands often. Wash them after sneezing or coughing. Use soap and water and wash for at least 20 seconds. Alcohol based hand peanut cleaner can be used if soap and water is not available. - Do not prepare food for others. Avoid sharing personal items like forks, spoons, or toothbrushes. - Avoid close contact with pets while you are sick. There is no evidence of the virus passing to pets. This is a safety step until more is known about this virus. Isolation can be frustrating. Social interaction can help. Keep in touch with friends and family through phone and tech options. You can still interact with others in your home, just keep a safe distance of about 6 feet. Follow-up: Your doctors office will check in with you to see if there are any changes in your health. You may be asked to keep track of symptoms to share with them. They will also let you know when you are clear to be in public again. Problems to Look Out For: Contact your doctor if your recovery is not going as you expect. Get emergency care if you have problems such as: - Trouble breathing - Nonstop chest pain or pressure - Changes in awareness, confusion, or problems waking - Lips or face have bluish color - Worsening of symptoms If you think you have an emergency, call for emergency medical services right away. As taken from [facility] DOUG BEACH DO Apr 19, 2021 19:32
[2021-04-19 19:49] LABS: BASO # 0.1 x10^3/uL (0.0-0.2); BASO % 1 % (0-3); EOS # 0.3 x10^3/uL (0.0-0.7); EOS % 3 % (0-3); HEMATOCRIT 46.9 % (39.0-53.0); HEMOGLOBIN 15.8 g/dL (13.0-17.5); LYMPH # 3.2 x10^3/uL (1.0-4.8); LYMPH % 36 % (24-48); MEAN CORPUSCULAR HEMOGLOBIN 31 pg (25-35); MEAN CORPUSCULAR HGB CONC 34 g/dL (31-37); MEAN CORPUSCULAR VOLUME 91 fL (79-100); MONO # 0.9 x10^3/uL (0.0-1.1); MONO % 10 % (0-9); NEUT # 4.5 x10^3uL (1.8-7.7); NEUT % 50 % (31-73); PLATELET COUNT 230 x10^3/uL (140-400); RED BLOOD COUNT 5.16 x10^6/uL (4.30-5.70); RED CELL DISTRIBUTION WIDTH 14.3 % (11.5-14.5)
[2021-04-19 19:57] LABS: CALCIUM 9.2 mg/dL (8.5-10.1); GFR 77.3; POTASSIUM 4.3 mmol/L (3.5-5.1)
[2021-04-19 20:03] LABS: ALBUMIN 3.7 g/dL (3.4-5.0); ALBUMIN/GLOBULIN RATIO 1.2 (1.0-1.7); TOTAL BILIRUBIN 0.5 mg/dL (0.2-1.0); TOTAL PROTEIN 6.9 g/dL (6.4-8.2)
--- NOTE | 2021-04-19 20:44 | RAD ---
XR CHEST 1V History: Chest pain Comparison: 10/25/2020 Technique: AP radiograph of the chest. Findings: The lungs are adequately and symmetrically inflated. No airspace consolidation, pleural effusion or p neumothorax. The cardiomediastinal silhouette and pulmonary vasculature are within normal limits. No acute osseous abnormality. Soft tissues are unremarkable. Impression: 1. No acute cardiopulmonary process. Electronically signed by: Darrick Atkins MD (04/19/2021 8:41 PM) [facility]
[2021-04-19 21:06] LABS: BARBITURATES NEG (NEG); BENZODIAZEPINES NEG (NEG); CANNABINOIDS NEG (NEG); COCAINE NEG (NEG); METHADONE NEG (NEG); OPIATES NEG (NEG); PHENCYCLIDINE NEG (NEG)
[2021-04-19 21:10] VITALS: BP 155/62
[2021-04-19 21:11] LABS: AMPHETAMINE/METHAMPHETAMINE NEG (NEG)
--- NOTE | 2021-04-19 21:26 | EKG ---
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
[2021-04-19] MEDS ORDERED: ALBUTEROL SULFATE 8GM INHALER. INH ONE (21:30)
== END 2021-04-19 21:18 | disposition home or self-care (01) ==
LOC: ER 19:02
DX: B34.9 Viral infection, unspecified (principal); R07.89 Other chest pain; E78.00 Pure hypercholesterolemia, unspecified; I10 Essential (primary) hypertension; I25.2 Old myocardial infarction; Z20.822 Contact with and (suspected) exposure to COVID-19; Z86.73 Personal history of transient ischemic attack (TIA), and cerebral infarction without residual deficits; Z98.61 Coronary angioplasty status; Z88.2 Allergy status to sulfonamides
CPT/HCPCS: 36415; 71045; 80053; 80307; 83880; 84484; 85025; 93005; 94640; 99285; C9803; U0003; 94664

== ENCOUNTER → 2021-06-30 | Outpatient (CLI) | payer OTHER ==
--- NOTE | 2021-06-30 16:00 | RAD ---
Three-view study lumbar spine Clinical indications: Low back pain. FINDINGS: The transverse processes are intact. No compression fracture or discitis or lytic process i s evident. No anterolisthesis is evident. There is mild degenerative endplate spurring throughout the lumbar spine. There is moderate degenerative disc space narrowing at L5-S1 and mild degenerative dis c space narrowing at L4-5. IMPRESSION: Degenerative lumbar spondylosis. Electronically signed by: Miguel Benoit MD (06/30/2021 3:57 PM) [id number]
== END ==
LOC: RAD 09:37
DX: M51.37 Other intervertebral disc degeneration, lumbosacral region (principal); M47.816 Spondylosis without myelopathy or radiculopathy, lumbar region; M48.07 Spinal stenosis, lumbosacral region
CPT/HCPCS: 72100

== ENCOUNTER 2021-09-26 15:50 | Inpatient (IN) | payer SELFPAY ==
[~2021-09-26] VITALS: Ht 177.8 cm; Wt 131.1 kg
--- NOTE | 2021-09-26 16:39 | RAD ---
EXAM: CHEST 1 VIEW History: Right-sided weakness COMPARISON: 08/23/2021 TECHNIQUE: Single portable radiograph of the chest FINDINGS: The cardiac silhouette is unremarkable. The lungs are clear bilaterally. The costophrenic sulci are clear and well demarcated. IMPRESSION: No radiographic evidence of an acute cardiopulmonary process. Electronically signed by: Uriel Ponce MD (09/26/2021 4:37 PM) [id number]
--- NOTE | 2021-09-26 16:41 | RAD ---
INDICATION: Reason: RIGHT SIDED WEAKNESS SINCE saturday / . Instructions: / History: COMPARISON: October 07, 2020 TECHNIQUE: Axial CT images obtained through the head without intravenous contrast. One or more of the following individualized dose reduction techniques were utilized for this examinat ion: 1. Automated exposure control; 2. Adjustment of the mA and/or kV according to patient size; 3 . Use of iterative reconstruction technique. FINDINGS: No intracranial hemorrhage. No significant midline shift. Ventricles and sulci are globally prominent. Scattered foci of low attenuation within the white matter. Calcific atherosclerosis. IMPRESSION: * No acute intracranial hemorrhage. * Scattered regions of low attenuation within the white matter. Non-specific in nature but a common finding and frequently secondary to small vessel ischemic disease. Electronically signed by: Hieu Purvis MD (09/26/2021 4:38 PM) [id number]
--- NOTE | 2021-09-26 16:58 | PHYS DOC ---
Past History Past Medical History: CVA, High Cholesterol, Hypertension, [place], Other Additional Past Medical Histor: SEASONAL ALLERGIES, cva 06/2020, mi 2018(multiple) (ARIELLA GARZA APRN) Past Surgical History: Angioplasty Additional Past Surgical Histo: 2 stents, LAMINECTOMY (ARIELLA GARZA APRN) Alcohol Use: None (ARIELLA GARZA APRN) General Adult EDM: Chief Complaint: WEAKNESS/GENERALIZED HPI: HPI: Patient is a 55-year-old male that presents today with right-sided weakness. Patient states that he woke up on Saturday morning with the inability to move his right arm and right leg. He states that over the last 2 days the symptoms have resided and he is able to move his right arm and right leg but he still feels that they are than his left side. Patient states he had a stroke in 2019 and June and he was taken to the hospital where he had some kind of angiogram done he is unsure of any treatment that was done at that time. Patient states that he is seen at [facility] he is currently taking Plavix 75 mg and aspirin 81 mg on a daily basis along with losartan, and Trileptal. Patient states that he did have have some right-sided weakness following his stroke in 2019 but he says the symptoms have worsened since then. (ARIELLA GARZA APRN) Review of Systems: Review of Systems: Constitutional: Denies fever or chills Eyes: Denies change in visual acuity HENT: Denies nasal congestion or sore throat Respiratory: Denies cough or shortness of breath Cardiovascular: Denies chest pain or edema GI: Denies abdominal pain, nausea, vomiting, bloody stools or diarrhea : Denies dysuria Musculoskeletal: Denies back pain or joint pain Integument: Denies rash Neurologic: Headache, right-sided weakness Endocrine: Denies polyuria or polydipsia Lymphatic: Denies swollen glands Psychiatric: Denies depression or anxiety (ARIELLA GARZA APRN) Allergies: Allergies: Allergies Coded Allergies Type Severity Reaction Last Updated Verified Sulfa (Sulfonamide Antibiotics) Allergy Intermediate 10/07/20 Yes (ARIELLA GARZA APRN) Physical Exam: PE: Constitutional: Well developed, well nourished, no acute distress, non-toxic appearance. [] HENT: Normocephalic, atraumatic, bilateral external ears normal, oropharynx moist, no oral exudates, nose normal. [] Eyes: PERRLA, EOMI, conjunctiva normal, no discharge. [] Neck: Normal range of motion, no tenderness, supple, no stridor. [] Cardiovascular:Heart rate regular rhythm, no murmur [] Lungs & Thorax: Bilateral breath sounds clear to auscultation [] Abdomen: Bowel sounds normal, soft, no tenderness, no masses, no pulsatile masses. [] Skin: Warm, dry, no erythema, no rash. [] Back: No tenderness, no CVA tenderness. [] Extremities: No tenderness, no cyanosis, no clubbing, ROM intact, no edema. [] Neurologic: Alert and oriented X 3, right-sided weakness noted, patient's hospital administrator on his right hand was marked to believe less than the left side, also patient was unable to straighten out leg from the knee and when asked to put down into my hand he was unable to do so without much effort, he also had some sensory deficits in his right leg sensory was less than it was on the left side, normal in the face and right to left arm region as well. Patient did have some ataxia as well in the upper extremities. Psychologic: Affect normal, judgement normal, mood normal. [] (ARIELLA GARZA APRN) Current Patient Data: Labs: Laboratory Tests Test 09/26/21 16:35 09/26/21 17:55 White Blood Count 9.1 x10^3/uL Red Blood Count 5.12 x10^6/uL Hemoglobin 15.9 g/dL Hematocrit 47.4 % Mean Corpuscular Volume 93 fL Mean Corpuscular Hemoglobin 31 pg Mean Corpuscular Hemoglobin Concent 34 g/dL Red Cell Distribution Width 14.5 % Platelet Count 241 x10^3/uL Neutrophils (%) (Auto) 61 % Lymphocytes (%) (Auto) 28 % Monocytes (%) (Auto) 8 % Eosinophils (%) (Auto) 1 % Basophils (%) (Auto) 1 % Neutrophils # (Auto) 5.6 x10^3uL Lymphocytes # (Auto) 2.6 x10^3/uL Monocytes # (Auto) 0.8 x10^3/uL Eosinophils # (Auto) 0.1 x10^3/uL Basophils # (Auto) 0.1 x10^3/uL Sodium Level 133 mmol/L Potassium Level 4.6 mmol/L Chloride Level 98 mmol/L Carbon Dioxide Level 22 mmol/L Anion Gap 13 Blood Urea Nitrogen 19 mg/dL Creatinine 1.1 mg/dL Estimated GFR (Cockcroft-Gault) 69.2 BUN/Creatinine Ratio 17 Glucose Level 294 mg/dL Calcium Level 7.4 mg/dL Total Bilirubin 0.4 mg/dL Aspartate Amino Transf (AST/SGOT) 39 U/L Alanine Aminotransferase (ALT/SGPT) 69 U/L Alkaline Phosphatase 156 U/L Troponin I High Sensitivity 8 ng/L Total Protein 7.3 g/dL Albumin 3.6 g/dL Albumin/Globulin Ratio 1.0 Urine Collection Type Unknown Urine Color Yellow Urine Clarity Clear Urine pH 6.0 Urine Specific [place] 1.020 Urine Protein Neg Urine Glucose (UA) >=1000 mg/dL Urine Ketones (Stick) Neg mg/dL Urine Blood Neg Urine Nitrite Neg Urine Bilirubin Neg Urine Urobilinogen Dipstick 0.2 mg/dL Urine Leukocyte Esterase Neg Urine RBC 0 /HPF Urine WBC Occ /HPF Urine Squamous Epithelial Cells Occ /LPF Urine Bacteria 0 /HPF Urine Mucus Slight /LPF Urine Opiates Screen Neg Urine Methadone Screen Neg Urine Barbiturates Neg Urine Phencyclidine Screen Neg Urine Amphetamine/Methamphetamine Neg Urine Benzodiazepines Screen Neg Urine Cocaine Screen Neg Urine Cannabinoids Screen Neg Urine Ethyl Alcohol Neg Vital Signs: Vital Signs Date Time Temp Pulse Resp B/P (MAP) Pulse Ox O2 Delivery O2 Flow Rate FiO2 09/26/21 21:02 88 16 142/68 (92) 98 09/26/21 16:24 98.3 90 16 145/71 (95) 98 Room Air Vital Signs Date Time Temp Pulse Resp B/P (MAP) Pulse Ox O2 Delivery O2 Flow Rate FiO2 09/26/21 16:24 98.3 90 16 145/71 (95) 98 Room Air (ARIELLA GARZA APRN) EKG: EKG: EKG done at [address] Pearce at 1702 sinus rhythm no STEMI rate of 94 with a [place] interval of 154 ms and a QT interval of 418 ms. [] (ARIELLA GARZA APRN) Radiology/Procedures: Radiology/Procedures: [STATUS: REG ERORD. PHYSICIAN: ARIELLA GARZA APRN REASON: RIGHT SIDED WEAKNESS SINCE saturday PROCEDURE: CT HEAD WO CONTRAST INDICATION: Reason: RIGHT SIDED WEAKNESS SINCE saturday / . Instructions: / History: COMPARISON: October 07, 2020 TECHNIQUE: Axial CT images obtained through the head without intravenous contrast. One or more of the following individualized dose reduction techniques were utilized for this examination: 1. Automated exposure control; 2. Adjustment of the mA and/or kV according to patient size; 3. Use of iterative reconstruction technique. FINDINGS: No intracranial hemorrhage. No significant midline shift. Ventricles and sulci are globally prominent. Scattered foci of low attenuation within the white matter. Calcific atherosclerosis. IMPRESSION: * No acute intracranial hemorrhage. * Scattered regions of low attenuation within the white matter. Non-specific in nature but a common finding and frequently secondary to small vessel ischemic disease. Electronically signed by: Hieu Purvis MD (09/26/2021 4:38 PM) DESKTOP- [id number]] REASON: RIGHT SIDED WEAKNESS PROCEDURE: CHEST AP ONLY EXAM: CHEST 1 VIEW History: Right-sided weakness COMPARISON: 08/23/2021 TECHNIQUE: Single portable radiograph of the chest FINDINGS: The cardiac silhouette is unremarkable. The lungs are clear bilaterally. The costophrenic sulci are clear and well demarcated. IMPRESSION: No radiographic evidence of an acute cardiopulmonary process. Electronically signed by: Uriel Ponce MD (09/26/2021 4:37 PM) [id number] (ARIELLA GARZA APRN) Heart Score: C/O Chest Pain: N/A Risk Factors: Risk Factors: DM, Current or recent (<one month) smoker, HTN, HLP, family histo ry of CAD, obesity. Risk Scores: Score 0 - 3: 2.5% MACE over next 6 weeks - Discharge Home Score 4 - 6: 20.3% MACE over next 6 weeks - Admit for Clinical Observation Score 7 - 10: 72.7% MACE over next 6 weeks - Early Invasive Strategies (ARIELLA GARZA APRN) Course & Med Decision Making: Course & Med Decision Making Pertinent Labs and Imaging studies reviewed. (See chart for details) [address] Pearce regarding this patient, he was concerned about patient's safety and walking, patient states she is able to get around his house but he is on a very small house and is able to grab onto things as he walks around he does not have a walker or wheelchair at home. He does follow-up with the [facility], says that he does not have insurance at this time. He is requesting to be discharged home when all the tests are done so that he can follow-up with his primary care physician for further management. 1704 patient was walked by nursing staff in the hallway patient was walking with assist x1 while holding onto the handrails in the hallway patient was reluctant to place weight on the right leg due to weakness. [address] Lucia he is agreeable to admission, he is asked that we do a CTA of the head and neck while here in the emergency department, and consult Dr. Whipple to follow-up with the patient in the a.m. (ARIELLA GARZA APRN) Course & Med Decision Making Did not see or evaluate patient. Did not discuss patient with BUILDING RIGGER. Agree with BUILDING RIGGER's work-up and disposition per note (MAYELIN PARISI MD) Dragon Disclaimer: Dragon Disclaimer: This electronic medical record was generated, in whole or in part, using a voice recognition dictation system. (ARIELLA GARZA APRN) Departure Departure: Impression: Primary Impression: Right sided weakness Disposition: ADMITTED INPATIENT Admitting Physician: Ivet Rodriguez (ARIELLA GARZA APRN) Condition: STABLE Referrals: DRISS MORGAN APRN (PCP) NIHSS - ED NIH Stroke Scale: NIH Stroke Scale Response (Comments) Value Level of Consciousness: 0 Alert/Responsive 0 LOC Questions: 0 Answers both correctly 0 LOC Commands: 0 Performs both tasks 0 Best Gaze: 0 Normal 0 Visual: 0 No visual loss 0 Facial Palsy: 0 Normal, symmetrical 0 Motor - Left Arm 0 No drift 0 Motor - Right Arm 1 Drifts but can hold 1 Motor - Left Leg 0 No drift 0 Motor: Right Leg 2 Some effort 2 Limb Ataxia: 1 One limb 1 Sensory: 1 Mid to moderate loss 1 Best Language: 0 Normal 0 Dysathria: 0 Normal 0 Extinction and Inattention: 0 Normal 0 Total 5 ARIELLA GARZA APRN Sep 26, 2021 16:58 MAYELIN PARISI MD Sep 26, 2021 22:14
--- NOTE | 2021-09-26 17:01 | EKG ---
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
[2021-09-26 17:04] LABS: BASO # 0.1 x10^3/uL (0.0-0.2); BASO % 1 % (0-3); CALCIUM 7.4 mg/dL (8.5-10.1); CREATININE 1.1 mg/dL (0.7-1.3); EOS # 0.1 x10^3/uL (0.0-0.7); EOS % 1 % (0-3); GFR 69.2; HEMATOCRIT 47.4 % (39.0-53.0); HEMOGLOBIN 15.9 g/dL (13.0-17.5); LYMPH # 2.6 x10^3/uL (1.0-4.8); LYMPH % 28 % (24-48); MEAN CORPUSCULAR HEMOGLOBIN 31 pg (25-35); MEAN CORPUSCULAR HGB CONC 34 g/dL (31-37); MEAN CORPUSCULAR VOLUME 93 fL (79-100); MONO # 0.8 x10^3/uL (0.0-1.1); MONO % 8 % (0-9); NEUT # 5.6 x10^3uL (1.8-7.7); NEUT % 61 % (31-73); PLATELET COUNT 241 x10^3/uL (140-400); POTASSIUM 4.6 mmol/L (3.5-5.1); RED BLOOD COUNT 5.12 x10^6/uL (4.30-5.70); RED CELL DISTRIBUTION WIDTH 14.5 % (11.5-14.5); WHITE BLOOD COUNT 9.1 x10^3/uL (4.0-11.0)
[2021-09-26 17:22] LABS: ALBUMIN 3.6 g/dL (3.4-5.0); TOTAL BILIRUBIN 0.4 mg/dL (0.2-1.0); TOTAL PROTEIN 7.3 g/dL (6.4-8.2)
[2021-09-26 18:54] LABS: BACTERIA,URINE 0 /HPF (0-FEW); BILIRUBIN,URINE NEG (NEG); CLARITY,URINE CLEAR; COLOR,URINE YELLOW; GLUCOSE,URINE >=1000 mg/dL (NEG); NITRITE,URINE NEG (NEG); RBC,URINE 0 /HPF (0-2); UROBILINOGEN,URINE 0.2 mg/dL (0.2 mg/dL); WBC,URINE OCC /HPF (0-4)
[2021-09-26 18:55] LABS: SQUAMOUS EPITHELIAL CELL,UR OCC /LPF
[2021-09-26 19:13] LABS: BARBITURATES NEG (NEG); BENZODIAZEPINES NEG (NEG); CANNABINOIDS NEG (NEG); COCAINE NEG (NEG); METHADONE NEG (NEG); OPIATES NEG (NEG); PHENCYCLIDINE NEG (NEG)
[2021-09-26 19:17] LABS: AMPHETAMINE/METHAMPHETAMINE NEG (NEG)
[2021-09-26] MEDS ORDERED: IOHEXOL 350 MG/ML 100 ML VIAL. IV ONE (19:45)
--- NOTE | 2021-09-26 21:14 | RAD ---
CTA of the head and neck with contrast 09/26/2021 Clinical history: Right-sided weakness. Technique: After the intravenous administration of 100 cc of Omnipaque 350, contiguous, 0.625 mm axia l sections were obtained through the upper chest, neck and head. Multiplanar 3-D MIP and volume rende red 3-D reconstructed images were obtained. One or more of the following individualized dose reduction techniques were utilized for this study: 1. Automated exposure control. 2. Adjustment of the mA and/or kV according to patient size. 3. Use of iterative reconstruction technique. Findings: Comparison is made to patient's CT scan of the head performed earlier today. Scattered atherosclerotic plaque formation seen involving the thoracic aortic arch and its branches. There is a common origin of the brachiocephalic and left common carotid arteries from the thoracic ao rtic arch. This is a normal variation. This origin is patent. The origin of the left subclavian arter y is patent. The origin of the right common carotid arteries are patent. The common carotid arteries are patent. Very mild atheromatous plaque formation is seen involving bot h carotid bifurcations, left and right. No hemodynamically significant stenosis is seen. The internal carotid arteries within the neck are mildly tortuous but patent. The right vertebral artery is slightly dominant. Both vertebral arteries demonstrate normal antegrade flow. No area of stenosis or occlusion is seen. Intracranially, scattered atherosclerotic plaque formation is seen involving the cavernous portions o f both internal carotid arteries. No hemodynamically significant stenosis or area of occlusion is see n. The basilar artery is patent. The anterior, middle and posterior cerebral arteries and their branc hes are within normal limits. No area of stenosis or occlusion is seen. No intracranial aneurysm is n oted. The major dural venous sinuses are patent. No area of abnormal contrast enhancement is seen. No acute soft tissue abnormality is seen involving the neck. Degenerative changes are seen involving the unco vertebral and facet joints throughout the cervical disc spaces. Impression: 1. Very mild atheromatous plaque formation is seen involving both carotid bifurcations, left greater than right. No hemodynamically significant stenosis is seen. 2. No intracranial stenosis or area of occlusion is seen. Stenosis calculation for CTA are based on measurement of the distal internal carotid artery diameter in accordance with the NASCET methodology. Electronically signed by: Corbin Mccarty MD (09/26/2021 9:11 PM) [id number]
[2021-09-26 22:24] VITALS: BP 163/95
--- NOTE | 2021-09-26 23:30 | NUR ---
The patient, LUIS CARLOS ADKINS, 55 y/o, M admitted by IZA CALLOWAY MD, was given written information regarding hospital policies, unit procedures and contact persons. Valuables were checked and left with the patient. Medications brought with pt moved to the med room. [email or web address]
[2021-09-27 03:09] LABS: INFLUENZA A PATIENT NEGATIVE (NEGATIVE); INFLUENZA B PATIENT NEGATIVE (NEGATIVE)
[2021-09-27] MEDS ORDERED: FLUT10.6 IH (05:34)
[2021-09-27] MEDS ORDERED: LOSA100T14 PO (05:34)
[2021-09-27 06:00] VITALS: BP 111/63
[2021-09-27 11:18] VITALS: BP 121/76
[2021-09-27] MEDS ORDERED: ACETAMINOPHEN 500 MG TABLET PO ONE (12:00)
--- NOTE | 2021-09-27 12:36 | HP ---
DATE OF SERVICE: 09/27/2021 ADMIT DATE: 09/26/2021 ATTENDING PHYSICIAN: Dr. Peters. CHIEF COMPLAINT: Right-sided weakness. HISTORY OF PRESENT ILLNESS: The patient is a 55-year-old gentleman with a known history of stroke. He woke up Saturday morning, he had difficulty moving his right arm and leg, symptoms lasted for 2 days. He presented to ED for further evaluation. He has risk factors. He sees a physician at [facility]. He has been on aspirin and Plavix. He is taking it religiously. He denies any skipped any doses. In the ED, the workup was fairly unremarkable. He was admitted for further treatment and evaluation. By the time I saw him, his symptoms had resolved. PAST MEDICAL HISTORY: Significant for old stroke in 2019, hyperlipidemia, hypertension, previous NV, seasonal allergies. PAST SURGICAL HISTORY: Two stents and the laminectomy. ALLERGIES: HE HAS ALLERGIES TO SULFA DRUGS. CURRENT MEDICATIONS: Include Plavix 75 mg daily, aspirin 81 mg daily, Coreg 12.5 mg b.i.d., Lipitor 80 mg daily and fluticasone. He is also on losartan 100 mg p.o. daily. SOCIAL HISTORY: He is a nonsmoker, nondrinker. FAMILY HISTORY: Noncontributory. REVIEW OF SYSTEMS: He is applying for disability. He has some residual weakness in the right side, but has about 90% resolved. He has some dysarthria, which has since resloved. All other systems reviewed and turned to be negative. PHYSICAL EXAMINATION: GENERAL: When I saw him, this is a pleasant, middle-aged gentleman. VITAL SIGNS: Initial vital signs showed a blood pressure 121/76 mmHg, pulse is 73 and regular. He was afebrile, oxygen saturation 95% on room air. HEENT: Head is without trauma. Pupils are reactive. Sclerae nonicteric. Oropharynx clear. NECK: Supple, no bruits. LUNGS: Clear. CARDIOVASCULAR: Regular heart tones. ABDOMEN: Soft. EXTREMITIES: Without edema. NEUROLOGIC: Medical Records Coder were symmetrical and equal in both hands by the time I saw him. Speech is fluent. Gait was unremarkable. He had no focal neurologic deficit at this time. PERTINENT LABORATORY AND X-RAY STUDIES: Extensive CT of the head and neck and chest showed no acute new stroke process. His vessels were patent without any severe blockages. Serology negative for coronavirus. Chemistry panel unremarkable. Nonfasting blood sugar 294. His hemoglobin was 15.9. ASSESSMENT: 1. A 55-year-old gentleman with TIA symptoms. 2. Old cerebrovascular accident with minimal residual. 3. Hyperglycemia. I do not think he has been adequately treated before. 4. Generalized debility. PLAN: 1. Observation status in our hospital. 2. Continue aspirin and Plavix. 3. Followup scans. 4. Diet as tolerated. 5. Continue current regimen. JOSHUA DR: Laura TID: [id number]
--- NOTE | 2021-09-27 12:48 | NUR ---
Nursing note PT assessed, medication for headache administered per doctors orders. PT discharged from the hospital to go home. Doctor verbalized PT does not show any signs or symptoms of Covid and has completed observation for stroke. Discharge assessments done and documented. Written prescriptions from doctor handed to PT. PT told to return to the emergency department or call 911 in case of any signs of stroke, PT verbalized understanding. PT assisted off the floor by the nurse and was picked up by security to be taken down the hill to drive himself home.
--- NOTE | 2021-09-27 12:52 | DS ---
DATE OF DISCHARGE: 09/27/2021 ATTENDING PHYSICIAN: Dr. Peters. FINAL DISCHARGE DIAGNOSES: 1. Transient ischemic attack, resolved. 2. Old stroke 2 years ago. 3. Essential hypertension. 4. Hyperlipidemia. 5. Mild right-sided weakness. HISTORY AND PHYSICAL: The patient is a 55-year-old gentleman. He has been compliant. He has been on Plavix and aspirin. Recent stroke 2 years ago. He has a new right-sided weakness. He has not skipped any doses. No new other risk factors. No COVID exposure. He has been fully vaccinated. He was admitted for observation. PHYSICAL EXAMINATION: Please see the dictated note. PERTINENT LABORATORY AND X-RAY STUDIES: Normal CBC, chemistry panel, screening panel unremarkable. IMAGING STUDIES: CT of the head, neck and chest showed no acute pathology, no obstructive lesions of his great vessels. COURSE IN THE HOSPITAL: Plavix and aspirin continued. He did have a slight blood sugar, which is stress related. He needs to follow up with his blood sugars as an outpatient when he goes to the [facility]. I wrote him a script for Plavix. I also wrote him a script for a folding walker. He will get this filled when he has a disability card. He was discharged then in stable condition with explicit drug and followup care to [facility] along with continuation of Plavix and aspirin. BRANDEE/KIRBY MAGDALENO: BRANDEE/ratna TID: [id number]
[2021-09-27 20:44] LABS: CHOLESTEROL/HDL RATIO 5.6
== END 2021-09-27 12:53 | disposition home or self-care (01) | DRG 69 ==
LOC: ER 15:50 → ER HOLD 19:34 → 1 SOUTH 22:14
PROVIDERS: ADMIT Internal Medicine; ATTEND Internal Medicine
DX: G45.9 Transient cerebral ischemic attack, unspecified (principal); E78.00 Pure hypercholesterolemia, unspecified; E78.5 Hyperlipidemia, unspecified; I10 Essential (primary) hypertension; I25.2 Old myocardial infarction; Z79.02 Long term (current) use of antithrombotics/antiplatelets; Z79.82 Long term (current) use of aspirin; Z86.73 Personal history of transient ischemic attack (TIA), and cerebral infarction without residual deficits; J30.2 Other seasonal allergic rhinitis; Z88.8 Allergy status to other drugs, medicaments and biological substances; Z88.2 Allergy status to sulfonamides; Z20.822 Contact with and (suspected) exposure to COVID-19
CPT/HCPCS: 36415; 70450; 70496; 70498; 71045; 80053; 80061; 80307; 81001; 84484; 85025; 93005; Q9967; U0003; 99285-25

== ENCOUNTER 2021-10-18 14:37 | Emergency (ER) | payer MEDICAID ==
[~2021-10-18] VITALS: Ht 177.8 cm; Wt 131.1 kg
[~2021-10-18 14:37] MED LIST changes: +FLUT10.6 IH; +LOSA100T14 PO
--- NOTE | 2021-10-18 15:32 | RAD ---
EXAM: Scrotal sonogram. HISTORY: Left groin redness. TECHNIQUE: Morris scale and color Doppler sonographic imaging of the scrotum with spectral analysis was performed. COMPARISON: None. FINDINGS: The testes are normal in size and demonstrate normal symmetric blood flow. No focal testicu lar parenchymal lesion is seen. There are small right greater than left hydroceles. There is an 8 mm right epididymal cyst. There is no varicocele. There is no inguinal mass or lymphadenopathy. IMPRESSION: 1. Small right greater than left hydroceles. 2. Small right epididymal cyst. 3. Unremarkable testes. Electronically signed by: Liliana Arvizu MD (10/18/2021 3:30 PM) [id number]
[2021-10-18 16:26] LABS: BACTERIA,URINE 0 /HPF (0-FEW); BILIRUBIN,URINE NEG (NEG); CLARITY,URINE CLEAR; COLOR,URINE YELLOW; GLUCOSE,URINE >=1000 mg/dL (NEG); NITRITE,URINE NEG (NEG); RBC,URINE 0 /HPF (0-2); UROBILINOGEN,URINE 0.2 mg/dL (0.2 mg/dL); WBC,URINE 0 /HPF (0-4)
[2021-10-18] MEDS ORDERED: NYST15PO9 TP (16:55)
--- NOTE | 2021-10-18 16:55 | PHYS DOC ---
Past History Past Medical History: CVA, Diabetes (pre diabetes), High Cholesterol, Hypertension, GA, Other Additional Past Medical Histor: SEASONAL ALLERGIES, cva 06/2020, mi 2019(multiple) (GILBERTO LUCIANO APRN) Past Surgical History: Angioplasty Additional Past Surgical Histo: 2 stents, LAMINECTOMY (GILBERTO LUCIANO APRN) Alcohol Use: None (GILBERTO LUCIANO APRN) Adult General Chief Complaint Chief Complaint: GROIN PAIN HPI HPI Patient is a 56-year-old male patient with history of prediabetes supposed to be on Metformin but does not take it because he does not like how it makes him feel, CVA, hypertension, high cholesterol, morbidly obese, who presents to the ED today complaining of left groin swelling, itching and drainage, symptoms began yesterday. Patient states he has history of jock itch rash as well as a hematoma to the left groin but that was after having a procedure done through the groin. He states he is concerned he could have a hematoma to the area. Denies any trauma. Denies any difficulty voiding. (GILBERTO LUCIANO APRN) Review of Systems Review of Systems Constitutional: Denies fever or chills [] Eyes: Denies change in visual acuity, redness, or eye pain [] HENT: Denies nasal congestion or sore throat [] Respiratory: Denies cough or shortness of breath [] Cardiovascular: No additional information not addressed in HPI [] GI: Denies abdominal pain, nausea, vomiting, bloody stools or diarrhea [] Reports left groin redness, swelling, itching : Denies dysuria or hematuria [] Musculoskeletal: Denies back pain or joint pain [] Integument: Denies rash or skin lesions [] Neurologic: Denies headache, focal weakness or sensory changes [] All other systems were reviewed and found to be within normal limits, except as documented in this note. (GILBERTO LUCIANO APRN) Allergies Allergies Allergies Coded Allergies Type Severity Reaction Last Updated Verified Sulfa (Sulfonamide Antibiotics) Allergy Intermediate 10/07/20 Yes (GILBERTO LUCIANO APRN) Physical Exam Physical Exam Constitutional: Well developed, well nourished, no acute distress, non-toxic appearance. [] HENT: Normocephalic, atraumatic, bilateral external ears normal, oropharynx moist, no oral exudates, nose normal. [] Eyes: PERRLA, EOMI, conjunctiva normal, no discharge. [] Neck: Normal range of motion, no tenderness, supple, no stridor. [] Cardiovascular:Heart rate regular rhythm, no murmur [] Lungs & Thorax: Bilateral breath sounds clear to auscultation [] Abdomen: Bowel sounds normal, soft, no tenderness, no masses, no pulsatile masses. [] Groin exam Left groin with mild jock itch rash, no swelling, no signs of bacterial infection Skin: Warm, dry, no erythema, no rash. [] Back: No tenderness, no CVA tenderness. [] Extremities: No tenderness, no cyanosis, no clubbing, ROM intact, no edema. [] Neurologic: Alert and oriented X 3, normal motor function, normal sensory function, no focal deficits noted. [] Psychologic: Affect normal, judgement normal, mood normal. [] (GILBERTO LUCIANO KITCHEN AND BATH DESIGNER) Current Patient Data Vital Signs Vital Signs Date Time Temp Pulse Resp B/P (MAP) Pulse Ox O2 Delivery O2 Flow Rate FiO2 10/18/21 14:52 97.8 112 24 159/115 (130) 96 Room Air Lab Results Laboratory Tests Test 10/18/21 15:08 Urine Collection Type Unknown Urine Color Yellow Urine Clarity Clear Urine pH 6.0 Urine Specific [place] 1.025 Urine Protein Neg (NEG-TRACE) Urine Glucose (UA) >=1000 mg/dL (NEG) Urine Ketones (Stick) Neg mg/dL (NEG) Urine Blood Neg (NEG) Urine Nitrite Neg (NEG) Urine Bilirubin Neg (NEG) Urine Urobilinogen Dipstick 0.2 mg/dL (0.2 mg/dL) Urine Leukocyte Esterase Neg (NEG) Urine RBC 0 /HPF (0-2) Urine WBC 0 /HPF (0-4) Urine Squamous Epithelial Cells None /LPF Urine Bacteria 0 /HPF (0-FEW) (GILBERTO LUCIANO K[employer] AND [employer]ATH DESIGNER) EKG EKG [] (GILBERTO LUCIANO K[employer] AND BATH DESIGNER) Radiology/Procedures Radiology/Procedures []PROCEDURE: TESTICULAR/SCROTUM EXAM: Scrotal sonogram. HISTORY: Left groin redness. TECHNIQUE: Morris scale and color Doppler sonographic imaging of the scrotum with spectral analysis was performed. COMPARISON: None. FINDINGS: The testes are normal in size and demonstrate normal symmetric blood flow. No focal testicular parenchymal lesion is seen. There are small right greater than left hydroceles. There is an 8 mm right epididymal cyst. There is no varicocele. There is no inguinal mass or lymphadenopathy. IMPRESSION: 1. Small right greater than left hydroceles. 2. Small right epididymal cyst. 3. Unremarkable testes. Electronically signed by: Liliana Hernandez MD (10/18/2021 3:30 PM) [id number] DICTATED AND SIGNED BY: LILIANA HERNANDEZ MD DATE: 10/18/21 1528 CC: GILBERTO LUCIANO APRN; DRISS MORGAN Patricio COLVIN ~MTH0 0 (GILBERTO LUCIANO APRN) Heart Score C/O Chest Pain: N/A Risk Factors: Risk Factors: DM, Current or recent (<one month) smoker, HTN, HLP, family histo ry of CAD, obesity. Risk Scores: Risk Factors: DM, Current or recent (<one month) smoker, HTN, HLP, family history of CAD, obesity. (GILBERTO LUCIANO APRN) Course & Med Decision Making Course & Med Decision Making Pertinent Labs and Imaging studies reviewed. (See chart for details) This is a 56-year-old male patient presented to the ED today complaining of redness, swelling and itching to the left groin. He was concerned he has a hematoma to the area. Physical exam is consistent with jock itch rash. Testicular scrotal ultrasound was noted for bilateral hydrocele , right epididymal cyst otherwise no acute findings. UA noted for greater than 1000 glucose. Patient reports history of pre-diabetes type 2, supposed to be on Metformin but he states he does not take it. He states he has an appointment with his PCP tomorrow. Encouraged patient to discuss his blood glucose management. Encouraged to follow-up with urologist for hydrocele and epididymal cyst noted on his ultrasound (GILBERTO LUCIANO APRN) Course & Med Decision Making I was the Attending physician on the above date of service of this patient. This patient was evaluated, examined, treated, and dispositioned from the emergency department by the mid-level practitioner. Although I was working at the time , no assistance was requested. Electronically signed, Demetrius Leal DO (DEMETRIUS LEAL DO) Phyllis Disclaimer Dragjose luis Disclaimer This electronic medical record was generated, in whole or in part, using a voice recognition dictation system. (GILBERTO LUCIANO APRN) Departure Departure: Impression: Primary Impression: Hydrocele in adult Additional Impressions: Epididymal cyst Jock itch Disposition: HOME / SELF CARE / HOMELESS Condition: STABLE Referrals: DRISS MORGAN APRN (PCP) please follow up with your doctor tomorrow and your own urologist in one week Patient Instructions: Jock Itch, [id number] Additional Instructions: You were evaluated in the emergency room, you were noted to have jock itch rash. Use nystatin powder as prescribed. Keep the testicle/groin region clean and dry. You have glucose in your urine please follow up with your doctor tomorrow for this. Scripts Nystatin (NYSTATIN) 15 Gm Powder 1 JOE TP BID for 7 Days, #1 BOTTLE 0 Refills apply to affected area(s) Prov: GILBERTO LUCIANO APRN 10/18/21 Problem Qualifiers GILBERTO LUCIANO APRN Oct 18, 2021 16:55 DEMETRIUS LEAL DO Oct 21, 2021 08:23
[2021-10-18 17:00] VITALS: BP 141/94
== END 2021-10-18 16:59 | disposition home or self-care (01) ==
LOC: ER 14:37
DX: N43.3 Hydrocele, unspecified (principal); N50.3 Cyst of epididymis; B35.6 Tinea cruris; E78.00 Pure hypercholesterolemia, unspecified; I25.2 Old myocardial infarction; Z86.73 Personal history of transient ischemic attack (TIA), and cerebral infarction without residual deficits; Z88.2 Allergy status to sulfonamides
CPT/HCPCS: 76870; 81001; 99284